=== PATIENT | male | born 1960 | race Caucasian/White ===

== ENCOUNTER → 2020-03-06 14:21 | Outpatient (BNVA) | payer BC, SELFPAY | PROVIDERS: Family Provider Internal Medicine; Visit Provider Emergency Medicine | DX: Z20.828 Contact with and (suspected) exposure to other viral communicable diseases (principal) | CPT/HCPCS: 87635 ==

== ENCOUNTER 2022-04-12 10:17 | Observation (INO) | payer MEDICAID, SELFPAY ==
[2022-04-12] VITALS (29 sets, daily range): BP systolic 132–164; BP diastolic 64–82; PULSE 59–69; RESP 18; TEMP 36.6; O2SAT 91–100; BMI 23.6
--- NOTE | 2022-04-12 10:34 | CT_ITS ---
WS: [id number] CT HEAD TECHNIQUE: Noncontrast CT of the head obtained from the skullbase to the vertex. CLINICAL INFORMATION: SYMPTOMS OF ACUTE STROKE COMPARISON: None. DLP: [address] scans at [facility] use at least one of these dose optimization techniques: automated e xposure control; mA and/or kV adjustment per patient size (includes targeted exams where dose is matc hed to clinical indication); or iterative reconstruction. FINDINGS: No evidence of intracranial hemorrhage or mass effect. Ventricular system and basal cisterns are cochran nt. Mild small vessel changes with mild parenchymal volume loss. Chronic lacunar infarct LEFT johnson radiata. Vascular calcification. No extra-axial fluid collections. No evidence of mass or mass effect . Partial opacification LEFT mastoid air cells. Mucosal thickening in the LEFT middle ear and tympanic membrane. Paranasal sinuses are well aerated. Normal posterior nasopharynx. CT/CT head thrombolytic 57703 IMPRESSION: 1. No evidence of intracranial hemorrhage or mass effect. 2. Mild small vessel changes with mild parenchymal volume loss. 3. Small chronic lacunar infarct LEFT johnson radiata. 4. No acute intracranial findings. Notified Garrett Day DO at 04/12/2022 10:39 AM.
--- NOTE | 2022-04-12 10:39 | CT_ITS ---
WS: [id number] CTA HEAD AND NECK TECHNIQUE: Contrast enhanced CTA of the head and neck with coronal and sagittal reformatted images an d maximum intensity projection (MIP) images. NASCET criteria utilized. CLINICAL INFORMATION: sudden onset N/V, dizziness COMPARISON: None. DLP: 509.[address] scans at [facility] use at least one of these dose optimization techniques: automated e xposure control; mA and/or kV adjustment per patient size (includes targeted exams where dose is matc hed to clinical indication); or iterative reconstruction. FINDINGS: RIGHT: RIGHT common carotid artery is patent. Moderate atheromatous plaque RIGHT carotid bulb extends into the ICA. Less than 50% ICA stenosis. ICA is patent to the skull base. LEFT: LEFT common carotid artery is patent. 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 This remains occluded to the skull base. INTRACRANIAL CTA: RIGHT ICA is patent to the skull base. LEFT ICA is occluded at the skull base. Mild cavernous carotid calcification. Hypoplastic LEFT A1 segment. LEFT MCA territory is supplied via cross-filling anterio r communicating artery. Slightly reduced but relatively normal vascularity to the LEFT MCA territory. Normal vascularity to the RIGHT MCA territory. Normal anterior cerebral arteries. No proximal flow l imiting stenosis. Congenital small basilar artery. Normal vascularity to the ACCOUNT GROUP SUPERVISOR territory bilaterally. Persistent RIGH T ACCOUNT GROUP SUPERVISOR. Patent LEFT posterior communicating artery. RIGHT vertebral artery is patent and partially ends in PICA. LEFT vertebral artery is occluded at the origin which is likely acute either due to atherosclerosis or dissection. Small amount of flow in th e midportion. Vertebral artery reconstitutes distally and is patent to the basilar junction. Pleural thickening with calcification in the LEFT upper lung apex. Fibrosis in the lung apices. Shari l posterior nasopharynx. Normal parapharyngeal fat. Aortic calcification with moderate atheromatous d isease. Straightening with reversal normal cervical lordosis. Moderate spondylitic changes. CT/CT angio headneck* [id number] IMPRESSION: 1. LEFT ICA is occluded just distal to the origin and remains occluded to the skull base. This is probably chronic. 2. Moderate calcified atheromatous plaque RIGHT carotid bulb extending into th e ICA with less than 50% stenosis. ICA is patent to the skull base. 3. RIGHT vertebral artery is patent and partially ends in PICA. Small contribu tion to the basilar artery. 4. LEFT vertebral artery is occluded proximally which is probably acute with a small amount of intermittent flow in the midportion. Distal vertebral artery r econstitutes via collateral flow and remains patent to the basilar junction. 5. Diminutive basilar artery which is patent. Anterior dominant circulation co ntributes to the posterior circulation. 6. LEFT MCA territory supplied via cross-filling via the anterior communicatin g artery. Relatively normal vascularity to the LEFT MCA territory considering L EFT ICA occlusion. Notified Garrett Day DO at 04/12/2022 11:13 AM.
--- NOTE | 2022-04-12 10:40 | W.ED.NEUROSD ---
HPI - Neuro Symptoms/Deficit General: Chief Complaint: Neuro Symptoms/Deficit Stated Complaint: [place] sent for BP issues Time Seen by Provider: 04/12/22 10:39 Source: patient Mode of arrival: ambulatory History of Present Illness: 62-year-old male presents emergency room with complaints of sudden onset of dizziness nausea and vomiting. Dizziness causes balance issues. Difficulty focusing but no loss of visual henriquez. Patient is not on any anticoagulants no recent head trauma no history of CVA or TIA. He does take aspirin daily. He does have a history of hypertension is on lisinopril 10 mg daily. Initial NIH score is 2 he presents 2 hours and 24 minutes after onset of symptoms. Onset (ago): hour(s) Time: 10:17 Last Observed Normal: 08:00 Timing confirmed by: spouse Location: other (Vision/balance nausea vomiting) History of same: No Severity: moderate Relieving factors: none Exacerbating factors: none Context: sudden onset Associated symptoms: Deny chest pain, cough, diaphoresis, fevers/chills, headache(s), anorexia, malaise, nausea, seizures, short of breath, syncope, tingling, vertigo, vomiting or weakness Treatments Prior to Arrival: none Review of Systems Const: Denies: fever(s), chills, fatigue, malaise or diaphoresis Eyes: Reports: change in vision ENMT: Denies: throat pain, ear or mastoid pain, nasal discharge or nasal congestion Card: Denies: chest pain, palpitations, irregular heart rhythm or syncope Resp: Denies: dyspnea, productive cough or non-productive cough GI: Denies: abdominal pain, nausea or vomiting : Denies: flank pain, dysuria, urinary frequency or urinary urgency Skin/Breast: Denies: rash or pruritus Neuro: Reports: difficulty walking; Denies: headache(s) or vertigo PFSH ED PFSH: Medical History HTN (hypertension) Surgical History No pertinent past surgical history Family History Other Stroke Social History Smoking and tobacco status: current every day smoker cigarettes Number of cigarettes per day: 11-20 Alcohol intake: never Substance/Drug Use: never Household members: spouse Housing: House NIH stroke score NIHSS: Level Of Consciousness - 1a: 0 Level Of Consciousness Questions - 1b: Both Correct Level Of Consciousness Commands - 1c: Both Correct Best Gaze - 2: Normal Visual Henriquez - 3: No Visual Loss Facial Palsy - 4: Normal Motor Arm Right - 5: No Drift Motor Arm Left - 5: No Drift Motor Leg Right - 6: Drift Motor Leg Left - 6: No Drift Limb Ataxia - 7: Absent Sensory - 8: Normal Best Language - 9: No Aphasia Dysarthia - 10: Mild/Moderate Dysarthia Extinction And Inattention - 11: 0 Score: Total Score: 2 Physical Exam Const: GENERAL APPEARANCE: cooperative and comfortable ORIENTATION/CONSCIOUSNESS: Yes awake, Yes oriented to person, Yes oriented to place and Yes oriented to time HENMT: COMMON NORMALS: normocephalic, atraumatic and hearing grossly normal bilaterally HEAD & SCALP: normocephalic and atraumatic Eye: COMMON NORMALS: Equal, round and reactive pupils present, EOMs intact bilaterally, conjunctivae normal and no scleral icterus CONJUNCTIVA: Yes conjunctivae normal PUPIL: Yes Equal, round and reactive pupils present Neck/C-Spine: COMMON NORMALS: full ROM, no lymphadenopathy, supple and no JVD Lymph: LYMPHATIC: no lymphadenopathy noted and no lymphedema noted Resp: COMMON NORMALS: normal respiratory effort, No retractions, No use of accessory muscles and clear to auscultation bilaterally AUSCULTATION: clear to auscultation bilaterally Cardio: COMMON NORMALS: no JVD, regular rate, regular rhythm and No murmurs present (Cardio) RATE: regular rate RHYTHM: regular rhythm GI: COMMON NORMALS: Soft to palpation and No hepatosplenomegaly present AUSCULTATION: Yes normoactive bowel sounds PALPATION: Yes Soft to palpation, No Tenderness to palpation present (GI), No Guarding due to palpation present (GI) and Yes No hepatosplenomegaly present Extremity: COMMON NORMALS: normal to inspection, capillary refill normal, no clubbing, cyanosis or edema, no calf tenderness and no pedal edema Neuro: SENSORIUM/ORIENTATION: Yes oriented to person, Yes oriented to place and Yes oriented to time OTHER: NIH score of 2. Patient has difficulty walking we later did ambulate him see notes below. On arrival rapid alternating movements and [id number] were normal. Skin: COMMON NORMALS: no rashes or lesions noted GENERAL SKIN EXAM: no rashes or lesions noted Course Vital Signs: Vital signs: Vital Signs Temperature 98 F 04/12/22 10:24 Pulse Rate 59 L 04/13/22 07:50 Respiratory Rate 18 04/12/22 10:24 Blood Pressure 144/71 04/12/22 18:15 Pulse Oximetry 92 04/13/22 07:50 Oxygen Delivery Me thod 04/13/22 07:50 MDM - Neuro Symptoms/Deficit Medical Decision Making Patient is is within the timeframe for tPA however his NIH score is 2. He does not have any ataxia but still has nausea vomiting and difficulty with balance. Initially was suspicious for hemorrhagic stroke. There is no bleeding on the CT. He did not score high enough to warrant tPA based on his NIH, CTA was done this confirmed her suspicion of a posterior stroke with occlusion of the left vertebral artery that radiology felt was acute. There is also finding of chronic occlusion of the left internal carotid artery.. A consult to [facility] on-call neurology. They recommended that we offer patient tPA based on his symptoms. Neurologist stated that NIH score does not take into account posterior stroke symptoms and given his deficits, timeframe and the finding on the CTA they still would recommend offering tPA. However this is not an area where an embolectomy is an option. Discussed risks and benefits, with the patient and his family they still wished to proceed with tPA, and tPA was started. Medical Records I reviewed the patient's medical records. Lab Data I reviewed the patient's lab results. 04/13/22 02:40 04/13/22 02:[address] 04/12/22 10:34 IMPRESSION: 1. No evidence of intracranial hemorrhage or mass effect. 2. Mild small vessel changes with mild parenchymal volume loss. 3. Small chronic lacunar infarct LEFT johnson radiata. 4. No acute intracranial findings. Notified Garrett Day DO at 04/12/2022 10:39 AM. Head/Neck CTA 04/12/22 10:39 IMPRESSION: 1. LEFT ICA is occluded just distal to the origin and remains occluded to the skull base. This is probably chronic. 2. Moderate calcified atheromatous plaque RIGHT carotid bulb extending into the ICA with less than 50% stenosis. ICA is patent to the skull base. 3. RIGHT vertebral artery is patent and partially ends in PICA. Small contribution to the basilar artery. 4. LEFT vertebral artery is occluded proximally which is probably acute with a small amount of intermittent flow in the midportion. Distal vertebral artery reconstitutes via collateral flow and remains patent to the basilar junction. 5. Diminutive basilar artery which is patent. Anterior dominant circulation contributes to the posterior circulation. 6. LEFT MCA territory supplied via cross-filling via the anterior communicating artery. Relatively normal vascularity to the LEFT MCA territory considering LEFT ICA occlusion. Notified Garrett Day DO at 04/12/2022 11:13 AM. Laboratory Results WBC 9.1 10^3/uL (4.0-10.0) 04/12/22 10:40 RBC 4.82 10^6/uL (4.1-5.3) 04/12/22 10:40 Hgb 14.7 g/dL (11.7-16.6) 04/12/22 10:40 Hct 44.0 % (42.0-52.0) 04/12/22 10:40 MCV 91.3 fl (80-94) 04/12/22 10:40 MCH 30.5 pg (28.0-34.0) 04/12/22 10:40 MCHC 33.4 g/dL (30.0-36.0) 04/12/22 10:40 RDW 13.1 % (12.1-15.1) 04/12/22 10:40 Plt Count 217 10^3/cmm (130-400) 04/12/22 10:40 MPV 12.1 fL (7.4-10.4) H 04/12/22 10:40 Neut % (Auto) 40.3 % 04/12/22 10:40 Lymph % (Auto) 45.1 % 04/12/22 10:40 Milam % (Auto) 10.1 % 04/12/22 10:40 Eos % (Auto) 3.2 % 04/12/22 10:40 Baso % (Auto) 1.2 % 04/12/22 10:40 Neut # (Auto) 3.65 10^3/uL (1.8-7.7) 04/12/22 10:40 Lymph # (Auto) 4.1 10^3/uL (0.8-4.8) 04/12/22 10:40 Milam # (Auto) 0.9 10^3/uL (0.2-0.9) 04/12/22 10:40 Eos # (Auto) 0.3 10^3/uL (0.0-0.8) 04/12/22 10:40 Baso # (Auto) 0.1 10^3/uL (0.0-0.1) 04/12/22 10:40 Nucleated RBC % (auto) 0 % 04/12/22 10:40 Nucleated RBCs # 0.0 /100WBC 04/12/22 10:40 PT 12.60 SECONDS (12.1-14.9) 04/12/22 10:40 INR 0.92 (0.8-1.2) 04/12/22 10:40 APTT 25.4 SECONDS (23.9-36.7) 04/12/22 10:40 Sodium 137 mmol/L (136-145) 04/12/22 10:40 Potassium 4.3 mmol/L (3.5-5.1) 04/12/22 10:40 Chloride 101 mmol/L (98-107) 04/12/22 10:40 Carbon Dioxide 28 mmol/L (22-29) 04/12/22 10:40 Anion Gap 12.3 (5-19) 04/12/22 10:40 BUN 9 mg/dL (8-23) 04/12/22 10:40 Creatinine 0.9 mg/dL (0.7-1.2) 04/12/22 10:40 GFR Calculation 85.0 mL/min (90-130) L 04/12/22 10:40 Glucose 105 mg/dL (65-115) 04/12/22 10:40 POC Glucose 107 mg/dL (70-110) 04/12/22 11:37 Estimat Average Glucose 123 04/12/22 10:40 Hemoglobin A1c 5.9 % (4.0-6.0) 04/12/22 10:40 Calculated Osmolality 283 mOsm/kg (285-295) L 04/12/22 10:40 Calcium 9.5 mg/dL (8.5-10.5) 04/12/22 10:40 Total Bilirubin 0.4 mg/dL (0.15-1.2) 04/12/22 10:40 AST 68 U/L (0-40) H 04/12/22 10:40 ALT 101 U/L (0-41) H 04/12/22 10:40 Alkaline Phosphatase 100 U/L (40-130) 04/12/22 10:40 Total Protein 7.9 g/dL (6.6-8.7) 04/12/22 10:40 Albumin 4.5 g/dL (3.5-5.2) 04/12/22 10:40 Globulin 3.4 g/dL (1.3-4.6) 04/12/22 10:40 Triglycerides 84 mg/dL (0-150) 04/12/22 10:40 Cholesterol 111 mg/dL (0-200) 04/12/22 10:40 LDL Cholesterol, Calc 57 mg/dL (50-129) 04/12/22 10:40 HDL Cholesterol 37 mg/dL (60-100) L 04/12/22 10:40 LDL/HDL Ratio 1.54 RATIO (0.00-3.22) 04/12/22 10:40 Cholesterol/HDL Ratio 3.00 mg/dL (1.0-5.00) 04/12/22 10:40 Vitamin B12 781 pg/mL (232-1245) 04/12/22 10:40 Critical Care Time Critical Care Time: Critical Care Time: Yes Total Critical Care Time: 45 Attestation: The high probability of a clinically significant, sudden or life threatening deterioration of the patient's neurologic system(s) required my full and direct attention, intervention and personal management. The critical care time is as shown. This time is in addition to time spent performing any reported procedures but includes the following: [x] Data and vital sign review and interpretation [x] Patient assessment, examination and intervention [x] Documentation [x] Medication orders and management Discharge Plan Discharge Patient Disposition: Admitted As Inpatient Admit Provider: Tuan Garcia Clinical Impression: Occlusion of left vertebral artery, CVA (cerebral vascular accident), Occlusion of left internal carotid artery Condition: Stable Coding Level of Care Code ED Filtration Plant Operator for Charly Reynolds
[2022-04-12 10:55] LABS: Basophils # 0.1 10^3/uL (0.0-0.1); Basophils % 1.2 %; Eosinophils # 0.3 10^3/uL (0.0-0.8); Eosinophils % 3.2 %; Hemoglobin 14.7 g/dL (11.7-16.6); Lymphocytes # 4.1 10^3/uL (0.8-4.8); Lymphocytes % 45.1 %; Mean Corpuscular HGB Conc 33.4 g/dL (30.0-36.0); Mean Corpuscular Hemoglobin 30.5 pg (28.0-34.0); Mean Corpuscular Volume 91.3 fl (80-94); Mean Platelet Volume 12.1 fL (7.4-10.4); Monocytes # 0.9 10^3/uL (0.2-0.9); Monocytes % 10.1 %; Neutrophils # 3.65 10^3/uL (1.8-7.7); Neutrophils % 40.3 %; Nucleated Red Blood Cells % 0 %; Platelet Count 217 10^3/cmm (130-400); Red Blood Count 4.82 10^6/uL (4.1-5.3); Red Cell Distribution Width 13.1 % (12.1-15.1); White Blood Count 9.1 10^3/uL (4.0-10.0)
[2022-04-12] MEDS: iohexol 350 mg/mL 500 mL Btl (per mL) IV (11:02)
[2022-04-12 11:06] LABS: INR 0.92 (0.8-1.2)
[2022-04-12] MEDS: LORazepam 2 mg/mL INJ 1 mL IVP (11:06)
[2022-04-12 11:07] LABS: Partial Thromboplastin Time 25.4 SECONDS (23.9-36.7)
--- NOTE | 2022-04-12 11:10 | ECG_ITS ---
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 Measurements Intervals [place] Rate: 59 P: 58 TX: 159 QRS: 60 QRSD: 101 T: 59 QT: 450 QTc: 448 Interpretive Statements SINUS BRADYCARDIA POSSIBLE INFERIOR MYOCARDIAL INFARCTION , OF INDETERMINATE AGE [30 ms Q WAVE IN II/aVF] No previous ECG available for comparison Electronically Signed On 04-12-2022 21:09:47 TRANSFORMER MOLDER by Tone Dao M.D. [id number]
[2022-04-12 11:14] LABS: Alanine Aminotransferase 101 U/L (0-41); Albumin Level 4.5 g/dL (3.5-5.2); Alkaline Phosphatase 100 U/L (40-130); Anion Gap 12.3 (5-19); Aspartate Amino Transferase 68 U/L (0-40); Blood Urea Nitrogen 9 mg/dL (8-23); Calcium 9.5 mg/dL (8.5-10.5); Carbon Dioxide 28 mmol/L (22-29); Chloride 101 mmol/L (98-107); Globulin 3.4 g/dL (1.3-4.6); Glucose 105 mg/dL (65-115); Osmolality Calculated 283 mOsm/kg (285-295); Potassium 4.3 mmol/L (3.5-5.1); Sodium 137 mmol/L (136-145); Total Bilirubin 0.4 mg/dL (0.15-1.2); Total Protein 7.9 g/dL (6.6-8.7)
[2022-04-12 11:39] LABS: Glucose Point of Care 107 mg/dL (70-110)
--- NOTE | 2022-04-12 11:57 | PC.NURSE ---
Provider discussed the benefits and side effects of TPN with Patient and SO. Patient stated that he wanted TPA administered.
--- NOTE | 2022-04-12 13:46 | P.HP_ITS ---
Providers/Chief Complaint Admitting Physician: Tuan Garcia MD Primary Care Provider: Akshat Townsend MD Chief Complaint: [place] sent for BP issues History of Present Illness Kenton Wright is a 62 year old male who does not have significant past medical event hypertension and depression presented with chief complaint of dizziness and headache. Patient symptoms started around 8 AM when he was complaining of severe headache. He was describing his headache as achy on back of his head which are associated with ataxia. PCP was called who recommended going to the ER. Patient arrived within 90 minutes of his symptoms, CT scan is showing vertebral artery dissection, [place] stroke team suggested tPA despite vertebral artery dissection. By the time I evaluate the patient patient was stating that his headache is better and he was not in any active distress. By the ER p leo he was given score of 2 for NIH. At the time of my evaluation NIH is 0 at the bedside, patient denying chest pain, nausea, vomiting, diarrhea weakness in his arms or legs or blurry vision. Review of Systems Const: Denies: fever(s) Eyes: Denies: change in vision ENMT: Denies: throat pain Card: Denies: chest pain Resp: Denies: dyspnea GI: Denies: abdominal pain : Denies: flank pain Musc: Denies: neck pain Skin/Breast: Denies: rash Neuro: Denies: headache(s) Psych: Reports: anxiety Endo: Denies: polyuria Tomasz/Lymph: Denies: easy bruising All/Imm: Denies: urticaria Medications/Allergies Home Medications Medication Instructions Recorded Confirmed Last Taken Type albuterol sulfate 90 mcg/actuation 2 puff inhalation .Q4-6H PRN 04/12/2204/12 Unknown History aerosol inhaler (Ventolin HFA) Shortness Of Breath aspirin 81 mg chewable tablet 81 mg PO DAILY 04/12/22 04/12/22 04/12/22 History atorvastatin 10 mg tablet 10 mg PO DAILY 04/12/22 04/12/22 04/11/22 History bupropion HCl 150 mg tablet,12 hr 150 mg PO DAILY 04/12/22 04/12/22 04/12/22 History sustained-release buspirone 5 mg tablet 5 mg PO BID 04/12/22 04/12/22 04/12/22 History levothyroxine 25 mcg tablet 25 mcg PO DAILY 04/12/22 04/12/22 04/12/22 History lisinopril 30 mg tablet 30 mg PO DAILY 04/12/22 04/12/22 04/12/22 History venlafaxine 75 mg capsule,extended 75 mg PO DAILY 04/12/22 04/12/22 04/11/22 History release 24 hr Allergies Allergy/AdvReac Type Severity Reaction Status Date / Time No Known Allergies Allergy Verified 03/06/20 10:15 PFSH Acute PFSH: Medical History HTN (hypertension) Surgical History No pertinent past surgical history Family History Other Stroke Social History (Updated 04/12/22 @ 19:27 by Tuan Garcia MD) Smoking and tobacco status: current every day smoker cigarettes Number of cigarettes per day: 11- Alcohol intake: never Substance/Drug Use: never Household members: spouse Housing: House Vitals/I&O/Wt Last Vital Signs Temp 98 F 04/12/22 10:24 Pulse 69 04/12/22 10:24 Resp 18 04/12/22 10:24 BP 153/72 04/12/22 12:00 Pulse Ox 92 04/12/22 12:00 O2 Del Method 04/12/22 12:00 Weight last 48 hrs Weight 74.843 kg Physical Exam Narrative: NIH 0 S1, S2 Sinus bradycardia Hypertensive Awake and alert Abdomen soft Good strength of upper and lower extremities EOMI, PERRLA No headache or distress Acute chest pain at the bedside Patient is pleasant and cooperative Data 04/12/22 10:40 04/12/22 10:40 A&P Assessment and plan (1) CVA (cerebral vascular accident): Plan Acute CVA status post tPA Left ICA occlusion, left vertebral artery occlusion, stroke screen recommended tPA patient was within the window Patient carry history of hypertension Will give labetalol if blood pressure greater than 180/105 mmHg Start dual antiplatelet therapy 24 hours after the tPA NIH is 0 Hemodynamically stable Requested echo with Doppler, protein C&S Stroke work-up He will need atorvastatin high intensity Full code No sign of dysphagia, he can have regular diet Requested PT OT and ST Attestations Medical Necessity Statement*: Anticipating discharge within 48 hours Time Spent in Patient Care: 40 Coding Level of Care Code Acute Interior Design Project Manager for Eliazarg Fwd Diagnoses CVA (cerebral vascular accident) I63.9
--- NOTE | 2022-04-12 13:59 | USCV_ITS ---
Kenton Wright Age: 62 Gender: M : 1960 Exam Date: 04/12/2022 14:36 Ordering Phys: Tuan Garcia MD Technologist: JOSE DAVID Exam Location: [facility] [place] Indication: STROKE BP: 153 / 72 HR: 54 Rhythm: Sinus Technical Quality: Adequate MEASUREMENTS (Male / Female) Normal Values 2D ECHO LVOT Diameter 2.0 cm LV Ejection Fraction MOD 2C 62.6 % LV Ejection Fraction 2C AL 64.3 % LA Diameter 2.9 cm LA Width 2.9 cm LA Height 3.7 cm RA Width 3.3 cm RA Height 3.9 cm Aorta at Sinotubular Diameter 2.3 cm IVC Diameter 1.2 cm M-MODE Aortic Annulus Diameter 2.9 cm LA Ao Ratio MM 1.0 MV E Point Septal Separation 0.6 cm DOPPLER AV Peak Velocity 133.0 cm/s LVOT Peak Velocity 100.0 cm/s AV Area Cont Eq vti 2.4 cm squared AV Area Cont Eq pk 2.4 cm squared MV Peak Velocity 103.0 cm/s MV Area PHT 2.2 cm squared Mitral E to A Ratio 0.6 MV E' Velocity 35.5 cm/s Mitral E to MV E' Ratio 6.6 Mitral E to LV E' Lateral Ratio 6.1 Mitral E to LV E' Septal Ratio 7.2 TR Peak Velocity 110.4 cm/s TR Peak Gradient 4.9 mmHg TR Mean Velocity 82.2 cm/s TR Mean Gradient 2.9 mmHg TR Velocity Time Integral 32.2 cm TV Peak E Velocity 45.0 cm/s Right Atrial Pressure 3.0 mmHg Pulmonary Artery Systolic Pressu 7.9 mmHg PV Peak Velocity 84.0 cm/s RV Acceleration Time 0.1 s RV Ejection Time 0.3 s RV AcT/ET 0.3 FINDINGS Left Ventricle Normal left ventricular size, systolic function and wall thickness, with no regional wall motion abnormalities. Left ventricular ejection fraction is estimated at 60 %. Normal diastolic function. Right Ventricle Normal right ventricular size and systolic function. RVSP could not be calculated due to incomplete tricuspid regurgitation velocity profile. Right Atrium Normal right atrial size. No evidence of intracardiac shunt by agitated saline (bubble study). Left Atrium Normal left atrial size. Mitral Valve Mildly thickened mitral valve. No mitral valve stenosis. Trace mitral valve regurgitation. Aortic Valve Probably trileaflet aortic valve. No aortic valve stenosis. No aortic valve regurgitation. Tricuspid Valve Structurally normal tricuspid valve. No tricuspid valve stenosis. Trace tricuspid valve regurgitation. Pulmonic Valve Structurally normal pulmonic valve. No pulmonary valve stenosis. No pulmonary valve regurgitation. Pericardium No pericardial effusion. Aorta Normal size aortic root and proximal ascending aorta. IVC Normal IVC dimension with >50% respiratory change of the inferior vena cava. CONCLUSIONS 1. Normal left ventricular size, systolic function and wall thickness, with no regional wall motion abnormalities. Left ventricular ejection fraction is estimated at 60 %. Normal diastolic function. 2. No evidence of intracardiac shunt by agitated saline (bubble study). 3. No prior similar studies to compare. Mitzi Roper MD (Electronically Signed) Final Date: 12 April 2022 17:29 S
--- NOTE | 2022-04-12 14:13 | PC.NURSE ---
Patient arrived to ICU at 1349. TPA was ended before arrival to ICU. Patient is alert and orientated. bedside
[2022-04-12 15:12] LABS: Cholesterol 111 mg/dL (0-200); HDL Cholesterol 37 mg/dL (60-100); LDL Cholesterol Calculated 57 mg/dL (50-129); LDL HDL Ratio 1.54 RATIO (0.00-3.22); Triglycerides 84 mg/dL (0-150)
[2022-04-12 15:28] LABS: Estmated Average Glucose 123; Hemoglobin A1C 5.9 % (4.0-6.0); Vitamin B12 781 pg/mL (232-1245)
[2022-04-12 22:08] LABS: Add Urine Microscopic? NO; Charge for UA Resulting for Rev
[2022-04-12 22:20] LABS: Amphetamines Screen Urine Negative (Negative); Barbiturates Screen Urine Negative (Negative); Benzodiazepines Screen Urine Positive (Negative); Cocaine Screen Urine Negative (Negative); Opiate Screen Urine Positive (Negative); PCP Screen Urine Negative (Negative); THC Screen Urine Positive (Negative)
[2022-04-12 22:25] LABS: Bilirubin Urine Neg (Negative); Blood Urine Neg (Negative); Glucose Urine UA Norm (Normal); Ketones Urine Negative (Negative); Leukocyte Esterase Urine Negative (Negative); Nitrate Urine Negative (Negative); Protein Urine Neg (Negative); Specific Gravity, Urine 1.005 (1.005-1.030); Urine Appearance Clear (CLEAR); Urine Color Yellow (Yellow); Urobilinogen Urine Norm (Negative); pH Urine 7 (5-7)
[2022-04-13 03:03] LABS: Basophils # 0.1 10^3/uL (0.0-0.1); Basophils % 0.8 %; Eosinophils # 0.3 10^3/uL (0.0-0.8); Eosinophils % 2.7 %; Hematocrit 41.7 % (42.0-52.0); Hemoglobin 13.4 g/dL (11.7-16.6); Lymphocytes # 2.6 10^3/uL (0.8-4.8); Lymphocytes % 27.3 %; Mean Corpuscular HGB Conc 32.1 g/dL (30.0-36.0); Mean Corpuscular Hemoglobin 30.2 pg (28.0-34.0); Mean Corpuscular Volume 94.1 fl (80-94); Mean Platelet Volume 12.5 fL (7.4-10.4); Monocytes # 0.8 10^3/uL (0.2-0.9); Monocytes % 8.5 %; Neutrophils # 5.75 10^3/uL (1.8-7.7); Neutrophils % 60.5 %; Nucleated Red Blood Cells % 0 %; Platelet Count 181 10^3/cmm (130-400); Red Blood Count 4.43 10^6/uL (4.1-5.3); Red Cell Distribution Width 13.2 % (12.1-15.1); White Blood Count 9.5 10^3/uL (4.0-10.0)
[2022-04-13 03:28] LABS: Anion Gap 13.5 (5-19); Blood Urea Nitrogen 13 mg/dL (8-23); Carbon Dioxide 27 mmol/L (22-29); Chloride 104 mmol/L (98-107); Glomerular Filtration Rate 97.3 mL/min (90-130); Glucose 90 mg/dL (65-115); Osmolality Calculated 290 mOsm/kg (285-295); Potassium 4.5 mmol/L (3.5-5.1); Sodium 140 mmol/L (136-145)
[2022-04-13 06:00] VITALS: PULSE 67
[2022-04-13 07:50] VITALS: PULSE 59; O2SAT 92
[2022-04-13] MEDS: atorvastatin 40 mg Tablet 20 MG PO (08:31)
[2022-04-13] MEDS: lisinopril 20 mg Tablet 30 MG PO (08:32)
[2022-04-13] MEDS: sennosides-docusate Tablet 1 TAB PO (08:32)
[2022-04-13] MEDS: levothyroxine 25 mcg Tablet PO (08:32)
[2022-04-13 10:00] VITALS: PULSE 59
--- NOTE | 2022-04-13 10:24 | PC.CHAP ---
Pastoral Care Encounter/Spiritual Assessment Type of Contact [] Declined outside salesman visit [] Patient/Family/Request visit [] Outpatient visit [] Follow-up visit [] Physician referral [] Code/Alert x[] Routine visit [] Staff referral [] Actively dying [x]x Patient sleeping [] Family support [] [] Out of room [] Palliative care [] [] Receiving care in room [] Pre-surgical visit [] Trauma [] Long length of stay [] ICU visit [] Other: Relational/Emotional Strength [] Patient feels connected with others/family/visitors/staff [] Distress [] Loneliness/isolation [] Abandonment Spirituality of Patient [] Person of Neha [] Attends Yarsanism of their Neha [] Believes in Prayer [] Reads Bible or Baptism materials [] There are Spiritual issues to be addressed Resourcing Advisor Interventions [] Prayer [] Active listening [] Non-anxious presence [] Spiritual/emotional support [] Crisis/trauma care [] Spiritual counseling [] Bereavement support [] Provided bereavement packet [] Provided Bible/devotional materials [] Provided toy/stuffed animal, coloring book to patient or family member [] Provided Communion [] Anointing/[place] [] Salvation [] Completed spiritual assessment [] Other: Impact on Illness or Injury [] Angry [] Fearful [] Anxious [] Often cries [] Exhaustion [] Unable to work [] Unable to attend protestant [] Unable to walk/stand [] Unable to read [] Unable to drive [] Unable to eat/drink [] Unable to sleep [] Unable to be with family [] Patient intubated [] Other: Summary Time spent with patient
[2022-04-13] MEDS: acetaminophen 500 mg Tablet PO (10:26)
--- NOTE | 2022-04-13 10:34 | P.DS_ITS ---
Discharge Providers Date of Admission: 04/12/22 13:59 Date of Discharge: April 13, 2022 Attending Provider at Admission: Tuan Garcia MD Attending Provider at Discharge: Tuan Garcia MD Primary Care Provider: Akshat Townsend MD Diagnoses at Discharge Discharge Diagnosis (1) CVA (cerebral vascular accident): Status: Acute Reason for Visit Reason for Visit: Kristian sent for BP issues Hospital Course Hospital Course 62-year-old male who carries history of hypertension and active smoking, no other medical history, presented to the hospital within 3 hours of his symptoms, his symptoms started at 8 AM with dizziness and headache, his PCP recommended him to go to the ER where he was given tPA for posterior circulation stroke on recommendation of [facility] stroke team, CT head unremarkable however CTA head and neck showed left ICA occlusion, left vertebral artery dissection, patient symptoms of headache and dizziness improved after tPA. He was monitored in the ICU, he did very well with PT, OT and speech therapy. He is being discharged on aspirin, high-dose statins, he is already on venlafaxine and BuSpar and bupropion for his anxiety and smoking cessation. His blood pressure remained stable. He may continue his lisinopril 30 mg daily. Physical Exam Narrative: NIH 0 EOMI, PERRLA Nonfocal neuro exam Awake and alert Sinus rhythm Normotensive Hemodynamic stable Doing well on room air Able to swallow without any difficulty Discharge Data Studies Completed and Pending Completed Studies During Hospitalization Category Date Time Status CT angio headneck* [id number] Stat Cat Scan 04/12/22 10:[address] head thrombolytic [id number] Stat Cat Scan 04/12/22 10:34 Completed CV. echo w/w bubble cont [id number] Routine Ultrasound 04/12/22 13:59 Completed Pending at discharge Category Date Time Status PROTEIN C, ACTIVITY Routine Lab 04/12/22 10:40 Received PROTEIN S, ACTIVITY Routine Lab 04/12/22 10:40 Received Radiology Impressions Head CT 04/12/22 10:34 IMPRESSION: 1. No evidence of intracranial hemorrhage or mass effect. 2. Mild small vessel changes with mild parenchymal volume loss. 3. Small chronic lacunar infarct LEFT johnson radiata. 4. No acute intracranial findings. Notified Garrett Day DO at 04/12/2022 10:39 AM. Head/Neck CTA 04/12/22 10:39 IMPRESSION: 1. LEFT ICA is occluded just distal to the origin and remains occluded to the skull base. This is probably chronic. 2. Moderate calcified atheromatous plaque RIGHT carotid bulb extending into the ICA with less than 50% stenosis. ICA is patent to the skull base. 3. RIGHT vertebral artery is patent and partially ends in PICA. Small contribution to the basilar artery. 4. LEFT vertebral artery is occluded proximally which is probably acute with a small amount of intermittent flow in the midportion. Distal vertebral artery reconstitutes via collateral flow and remains patent to the basilar junction. 5. Diminutive basilar artery which is patent. Anterior dominant circulation contributes to the posterior circulation. 6. LEFT MCA territory supplied via cross-filling via the anterior communicating artery. Relatively normal vascularity to the LEFT MCA territory considering LEFT ICA occlusion. Notified Garrett Day DO at 04/12/2022 11:13 AM. Laboratory Results WBC 9.5 10^3/uL (4.0-10.0) 04/13/22 02:40 RBC 4.43 10^6/uL (4.1-5.3) 04/13/22 02:40 Hgb 13.4 g/dL (11.7-16.6) 04/13/22 02:40 Hct 41.7 % (42.0-52.0) L 04/13/22 02:40 MCV 94.1 fl (80-94) H 04/13/22 02:40 MCH 30.2 pg (28.0-34.0) 04/13/22 02:40 MCHC 32.1 g/dL (30.0-36.0) 04/13/22 02:40 RDW 13.2 % (12.1-15.1) 04/13/22 02:40 Plt Count 181 10^3/cmm (130-400) 04/13/22 02:40 MPV 12.5 fL (7.4-10.4) H 04/13/22 02:40 Neut % (Auto) 60.5 % 04/13/22 02:40 Lymph % (Auto) 27.3 % 04/13/22 02:40 [place] % (Auto) 8.5 % 04/13/22 02:40 Eos % (Auto) 2.7 % 04/13/22 02:40 Baso % (Auto) 0.8 % 04/13/22 02:40 Neut # (Auto) 5.75 10^3/uL (1.8-7.7) 04/13/22 02:40 Lymph # (Auto) 2.6 10^3/uL (0.8-4.8) 04/13/22 02:40 [place] # (Auto) 0.8 10^3/uL (0.2-0.9) 04/13/22 02:40 Eos # (Auto) 0.3 10^3/uL (0.0-0.8) 04/13/22 02:40 Baso # (Auto) 0.1 10^3/uL (0.0-0.1) 04/13/22 02:40 Nucleated RBC % (auto) 0 % 04/13/22 02:40 Nucleated RBCs # 0.0 /100WBC 04/13/22 02:40 PT 12.60 SECONDS (12.1-14.9) 04/12/22 10:40 INR 0.92 (0.8-1.2) 04/12/22 10:40 APTT 25.4 SECONDS (23.9-36.7) 04/12/22 10:40 Sodium 140 mmol/L (136-145) 04/13/22 02:40 Potassium 4.5 mmol/L (3.5-5.1) 04/13/22 02:40 Chloride 104 mmol/L (98-107) 04/13/22 02:40 Carbon Dioxide 27 mmol/L (22-29) 04/13/22 02:40 Anion Gap 13.5 (5-19) 04/13/22 02:40 BUN 13 mg/dL (8-23) 04/13/22 02:40 Creatinine 0.8 mg/dL (0.7-1.2) 04/13/22 02:40 GFR Calculation 97.3 mL/min (90-130) 04/13/22 02:40 Glucose 90 mg/dL (65-115) 04/13/22 02:40 POC Glucose 107 mg/dL (70-110) 04/12/22 11:37 Estimat Average Glucose 123 04/12/22 10:40 Hemoglobin A1c 5.9 % (4.0-6.0) 04/12/22 10:40 Calculated Osmolality 290 mOsm/kg (285-295) 04/13/22 02:40 Calcium 9.0 mg/dL (8.5-10.5) 04/13/22 02:40 Phosphorus 4.0 mg/dL (2.5-4.5) 04/13/22 02:40 Magnesium 2.0 mg/dL (1.7-2.3) 04/13/22 02:40 Total Bilirubin 0.4 mg/dL (0.15-1.2) 04/12/22 10:40 AST 68 U/L (0-40) H 04/12/22 10:40 ALT 101 U/L (0-41) H 04/12/22 10:40 Alkaline Phosphatase 100 U/L (40-130) 04/12/22 10:40 C-Reactive Protein 3.0 mg/L (0.0-4.9) 04/13/22 02:40 Total Protein 7.9 g/dL (6.6-8.7) 04/12/22 10:40 Albumin 4.5 g/dL (3.5-5.2) 04/12/22 10:40 Globulin 3.4 g/dL (1.3-4.6) 04/12/22 10:40 Triglycerides 84 mg/dL (0-150) 04/12/22 10:40 Cholesterol 111 mg/dL (0-200) 04/12/22 10:40 LDL Cholesterol, Calc 57 mg/dL (50-129) 04/12/22 10:40 HDL Cholesterol 37 mg/dL (60-100) L 04/12/22 10:40 LDL/HDL Ratio 1.54 RATIO (0.00-3.22) 04/12/22 10:40 Cholesterol/HDL Ratio 3.00 mg/dL (1.0-5.00) 04/12/22 10:40 Vitamin B12 781 pg/mL (232-1245) 04/12/22 10:40 Urine Color Yellow (Yellow) 04/12/22 21:50 Urine Appearance Clear (CLEAR) 04/12/22 21:50 Urine pH 7 (5-7) 04/12/22 21:50 Ur Specific [place] 1.005 (1.005-1.030) 04/12/22 21:50 Urine Protein Neg (Negative) 04/12/22 21:50 Urine Glucose (UA) Norm (Normal) 04/12/22 21:50 Urine Ketones Negative (Negative) 04/12/22 21:50 Urine Blood Neg (Negative) 04/12/22 21:50 Urine Nitrate Negative (Negative) 04/12/22 21:50 Urine Bilirubin Neg (Negative) 04/12/22 21:50 Urine Urobilinogen Norm mg/dL (Negative) 04/12/22 21:50 Ur Leukocyte Esterase Negative (Negative) 04/12/22 21:50 Urine Opiates Screen Positive ng/mL (Negative) H 04/12/22 21:50 Ur Barbiturates Screen Negative ng/mL (Negative) 04/12/22 21:50 Ur Phencyclidine Scrn Negative ng/mL (Negative) 04/12/22 21:50 Ur Amphetamines Screen Negative ng/mL (Negative) 04/12/22 21:50 U Benzodiazepines Scrn Positive ng/mL (Negative) H 04/12/22 21:50 Urine Cocaine Screen Negative ng/mL (Negative) 04/12/22 21:50 U Marijuana (THC) Screen Positive ng/mL (Negative) H 04/12/22 21:50 Vitals Last Vital Signs Temp 98 F 04/12/22 10:24 Pulse 59 L 04/13/22 10:00 Resp 18 04/12/22 10:24 BP 144/71 04/12/22 18:15 Pulse Ox 92 04/13/22 07:50 O2 Del Method 04/13/22 07:50 Discharge Plan Discharge Patient Disposition: Home Condition: Stable Prescriptions: Continued buspirone 5 mg tablet 5 mg PO BID bupropion HCl 150 mg tablet sustained-release 12 hr 150 mg PO DAILY venlafaxine 75 mg capsule,extended release 24hr 75 mg PO DAILY levothyroxine 25 mcg tablet 25 mcg PO DAILY lisinopril 30 mg tablet 30 mg PO DAILY Ventolin HFA 90 mcg/actuation HFA aerosol inhaler 2 puff INHALATION .Q4-6H PRN (Reason: Shortness Of Breath) aspirin 81 mg Tablet,Chewable 81 mg PO DAILY Qty: 60 0RF Changed atorvastatin 10 mg tablet 40 mg PO DAILY Qty: 90 0RF Discharge Orders: Discharge Order (Routine); Ordered 04/13/22 Ordered By: Tuan Garcia Referrals: Akshat Townsend MD [Primary Care Provider] - 1-3 days (your appointment is scheduled :(Saturday at time of 4:00 pm ) Discharge Diet: Cardiac Discharge Activity: Increase activity as tolerated Patient Instructions: Heart Healthy Diet, Self Care Measures After a Stroke (DC), Aspiration Precautions (DC), Opioid Safety, Stroke Stoplight Activity Restrictions/Additional Instructions: Please follow-up with your PCP within 1 to 3 days, you can start taking aspirin from 04/14/2022, you can resume rest of your medications for blood pressure and depression Discharge Attestations Time Spent in Discharge Care*: less than 30 min Quality Metrics Clinical Quality Measures [ No reported AMI, CVA or VTE this stay] Coding Level of Care Code Acute Chg FW DC note Diagnoses CVA (cerebral vascular accident) I63.9
[2022-04-13 11:01] VITALS: BP 144/71; RESP 18; TEMP 36.6; O2SAT 92
--- NOTE | 2022-04-13 12:52 | PC.NURSE ---
Patient discharged at 1215 and left floor via W/C to main exit. Patient was given all discharge information and instructions, patient and family all verbalized understanding. All IV's removed. All patient belongings sent with patient.
[2022-04-14 20:55] LABS: PROTEIN S, ACTIVITY 52 % normal (70-150)
[2022-04-18 05:00] LABS: PROTEIN C, ACTIVITY 103 % normal (70-180)
== END 2022-04-13 12:15 | disposition home or self-care (01) ==
LOC: ER 12:47 → ICU 15:36
PROVIDERS: Admitting Provider Internal Medicine; Emergency Provider Family Medicine; PCP Family Medicine; Visit Provider Internal Medicine
DX: I63.9 Cerebral infarction, unspecified (principal); I10 Essential (primary) hypertension; F17.210 Nicotine dependence, cigarettes, uncomplicated
CPT/HCPCS: 36415; 36416; 70450; 70496; 70498; 80048; 80053; 80061; 80306; 81003; 82607; 82962; 83036; 83735; 84100; 85025; 85303; 85306; 85610; 85730; 86140; 92523; 92610; 93005; 96365; 96375; 97110; 97116; 97161; 97165; 99285; C8929; G0378; J2060; J2997; Q9967

== ENCOUNTER → 2022-04-19 10:30 | Outpatient (BNVA) | payer MEDICAID, SELFPAY | PROVIDERS: PCP Family Medicine; Visit Provider Student in an Organized Health Care Education/Training Program | DX: B18.2 Chronic viral hepatitis C (principal) | CPT/HCPCS: 36415; 86705; 86706; 86709; 86803; 87340; 87522 ==

== ENCOUNTER 2022-06-12 07:30 | Outpatient (CLI) | payer MEDICAID, SELFPAY ==
--- NOTE | 2022-06-12 07:45 | US_ITS ---
WS: [id number] RIGHT UPPER QUADRANT ULTRASOUND HISTORY: chronic hepatitis c COMPARISON: None available. Liver: 12.8 cm in length. Normal size liver. No mass. There is very slight coarsened echotexture sugg esting hepatocellular disease. No mass or bile duct dilatation. Portal Vein: Normal hepatopetal flow with monophasic waveform. Gallbladder: Normally distended gallbladder with no stones or wall thickening. CBD: 0.2 cm Pancreas: Poorly visualized due to body habitus and bowel gas. Right kidney: 9.4 cm in length. Normal size and echogenicity. No hydronephrosis or mass. Aorta and IVC: Unremarkable abdominal aorta and IVC. No ascites. US/US liver [id number] IMPRESSION: 1. Negative gallbladder. 2. No bile duct dilatation. 3. Very mild coarse echotexture throughout the liver can be seen with early ch anges of cirrhosis or hepatocellular disease.
== END 2022-06-12 07:31 | disposition home or self-care (01) ==
LOC: RAD 07:30
PROVIDERS: PCP Family Medicine; Visit Provider Student in an Organized Health Care Education/Training Program
DX: B18.2 Chronic viral hepatitis C (principal)
CPT/HCPCS: 76705

== ENCOUNTER 2022-08-06 20:09 | Inpatient (IN) | payer MEDICAID, SELFPAY ==
[2022-08-06 20:22] VITALS: BP 147/89; PULSE 95; RESP 18; TEMP 36.9; O2SAT 98; BMI 23.7
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
[2022-08-06 20:57] LABS: Basophils # 0.1 10^3/uL (0.0-0.1); Basophils % 0.9 %; Eosinophils # 0.2 10^3/uL (0.0-0.8); Eosinophils % 1.7 %; Hematocrit 43.1 % (42.0-52.0); Hemoglobin 14.6 g/dL (11.7-16.6); Lymphocytes # 4.4 10^3/uL (0.8-4.8); Mean Corpuscular HGB Conc 33.9 g/dL (30.0-36.0); Mean Corpuscular Hemoglobin 30.5 pg (28.0-34.0); Mean Corpuscular Volume 90.2 fl (80-94); Mean Platelet Volume 11.3 fL (7.4-10.4); Monocytes % 9.8 %; Neutrophils # 4.18 10^3/uL (1.8-7.7); Neutrophils % 42.5 %; Nucleated Red Blood Cells % 0 %; Platelet Count 233 10^3/cmm (130-400); Red Blood Count 4.78 10^6/uL (4.1-5.3); Red Cell Distribution Width 12.3 % (12.1-15.1); White Blood Count 9.8 10^3/uL (4.0-10.0)
[2022-08-06 21:16] LABS: Amphetamines Screen Urine Negative (Negative); Barbiturates Screen Urine Negative (Negative); Benzodiazepines Screen Urine Negative (Negative); Cocaine Screen Urine Negative (Negative); Opiate Screen Urine Negative (Negative); PCP Screen Urine Negative (Negative); THC Screen Urine Positive (Negative)
[2022-08-06 21:19] LABS: Alanine Aminotransferase 16 U/L (0-41); Albumin Level 4.8 g/dL (3.5-5.2); Alkaline Phosphatase 85 U/L (40-130); Anion Gap 13.4 (5-19); Aspartate Amino Transferase 17 U/L (0-40); Blood Urea Nitrogen 19 mg/dL (8-23); Calcium 9.8 mg/dL (8.5-10.5); Carbon Dioxide 29 mmol/L (22-29); Chloride 91 mmol/L (98-107); Globulin 3.5 g/dL (1.3-4.6); Glomerular Filtration Rate 75.2 mL/min (90-130); Glucose 113 mg/dL (65-115); Osmolality Calculated 273 mOsm/kg (285-295); Potassium 3.4 mmol/L (3.5-5.1); Sodium 130 mmol/L (136-145); Total Bilirubin 0.3 mg/dL (0.15-1.2); Total Protein 8.3 g/dL (6.6-8.7)
[2022-08-06 21:28] LABS: Acetaminophen < 5.0 ug/mL (10-30); Alcohol Level < 10 mg/dL (0-10); Salicylate < 0.3 mg/dL (3-10)
[2022-08-06 23:23] VITALS: BP 135/72; PULSE 72; RESP 17; TEMP 36.9; O2SAT 99
[2022-08-06 23:28] VITALS: BP 144/83; PULSE 78; RESP 18; TEMP 36.8; O2SAT 99
[2022-08-07 06:00] VITALS: BP 128/85; PULSE 92; RESP 16; TEMP 36.6; O2SAT 99
[2022-08-07] MEDS: lisinopril 20 mg Tablet 40 MG PO (08:39)
[2022-08-07] MEDS: buPROPion SR (12 HR) 150 mg Tablet PO ×2 (08:39→21:38)
[2022-08-07] MEDS: levothyroxine 25 mcg Tablet PO (08:39)
[2022-08-07] MEDS: aspirin 81 mg EC Tablet PO (08:40)
[2022-08-07] MEDS: venlafaxine ER (24HR) 75 mg Capsule PO (08:40)
[2022-08-07] MEDS: BuSPIRONE 10 mg Tablet 5 MG PO ×2 (08:40→21:37)
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
[2022-08-07 14:00] VITALS: BP 126/81; PULSE 92; RESP 18; TEMP 36.8; O2SAT 98
[2022-08-07 22:00] VITALS: BP 133/80; PULSE 104; RESP 16; TEMP 36.9; O2SAT 95
[2022-08-08 06:00] VITALS: RESP 17
[2022-08-08] MEDS: lisinopril 20 mg Tablet 40 MG PO (10:20)
[2022-08-08] MEDS: BuSPIRONE 10 mg Tablet 5 MG PO ×2 (10:21→20:31)
[2022-08-08] MEDS: aspirin 81 mg EC Tablet PO (10:21)
[2022-08-08] MEDS: venlafaxine ER (24HR) 75 mg Capsule PO (10:22)
[2022-08-08] MEDS: benztropine 1 mg Tablet PO (10:22)
[2022-08-08] MEDS: buPROPion SR (12 HR) 150 mg Tablet PO ×2 (10:22→20:31)
[2022-08-08] MEDS: levothyroxine 25 mcg Tablet PO (10:22)
[2022-08-08] MEDS: escitalopram 10 mg Tablet 5 MG PO (11:15)
[2022-08-08 14:00] VITALS: BP 131/84; PULSE 107; RESP 18; TEMP 36.7; O2SAT 98
--- NOTE | 2022-08-08 17:32 | W.PM.NPUPNS ---
Subjective NPU Subjective: Patient presented today reporting that he is doing okay. He has had no difficulty with the rules and not being able to leave since he got here. He was agreeable to switch his antidepressant from Effexor XR 75 mg daily given concerns for side effects given his medical comorbidities to Lexapro 5 mg every morning to start. We discussed the risks, benefits and alternatives and he understood and agreed to proceed as is documented in this note. He denied any problems with the initial dosing. Mental Status Exam MSE Comments: This is a well-nourished well-developed tall white male in hospital scrubs with adequate grooming and eye contact. No abnormal movements except for mild psychomotor retardation. Cooperative with exam in mild distress. Speech was normal rate and volume. Mood described as okay, affect congruent. Thought process organized. Thought content: Patient denied suicidal or homicidal ideation, but did report that he will have aggressive episodes that he feels he is not in control, there were no delusions reported or noted, he denied any auditory or visual hallucinations. Attention and concentration are intact and memory appeared reliable but none were formally tested. He is alert and oriented x3. Insight and judgment are limited and impulse control is impaired. Vitals/I&O/Wt Last Vital Signs Temp 98.1 F 08/08/22 14:00 Pulse 107 H 08/08/22 14:00 Resp 18 08/08/22 14:00 BP 131/84 08/08/22 14:00 Pulse Ox 98 08/08/22 14:00 O2 Del Method Room Air 08/07/22 22:00 Weight last 48 hrs Weight 77.111 kg Data NPU 08/06/22 20:43 08/06/22 20:43 A&P Assessment and plan (1) Aggressive behavior: (2) Hepatitis B antibody positive: (3) Chronic hepatitis C virus genotype 1 infection: (4) Intermittent explosive disorder: (5) History of stroke: Plan A 62-year-old white male with no significant history of depression and anxiety except for that reported subsequent to his stroke in March which led to some depression and anxiety and recently having issues with anger and anger control reporting that he is feeling agitated at times and not able to control his response to that agitation. 1.? Continue current medication.? Consider mood stabilizer for behavioral changes/irritability. Start taper Effexor of Effexor XR 75 mg p.o. daily to 37.5 mg p.o. daily and start Lexapro 5 mg p.o. every morning. 2? Continue every 15 minute checks for safety. 3.? Encourage individual, group and milieu therapies. 4.? Work with family for collateral information. 5. Encourage sober living treatment after discharge at the highest level of care to which he is willing to commit. Involuntary Hold Information 96 Hour Hold: 96 Hour Involuntary Admission: Yes 96 Hour Hold Ending Date: 08/06/22 96 Hour Hold Ending Time: 23:15 Attestations NPU Medical Necessity Statement*: Inpatient hospitalization is medically necessary and the clinically appropriate intervention at this time. We will monitor/initiate medications and make changes as indicated. Likely length of stay 2-4 days. Coding Level of Care Code Acute Code for Chg Fwd Diagnoses Aggressive behavior R46.89 Hepatitis B antibody positive R76.8 Chronic hepatitis C virus genotype 1 infection B18.2 Intermittent explosive disorder F63.81 History of stroke Z86.73
[2022-08-08 22:00] VITALS: BP 113/72; PULSE 77; RESP 18; TEMP 36.4; O2SAT 94
[2022-08-09 05:59] VITALS: RESP 16
[2022-08-09] MEDS: aspirin 81 mg EC Tablet PO (08:34)
[2022-08-09] MEDS: lisinopril 20 mg Tablet 40 MG PO (08:34)
[2022-08-09] MEDS: buPROPion SR (12 HR) 150 mg Tablet PO ×2 (08:34→20:47)
[2022-08-09] MEDS: levothyroxine 25 mcg Tablet PO (08:35)
[2022-08-09] MEDS: BuSPIRONE 10 mg Tablet 5 MG PO ×2 (08:35→20:47)
[2022-08-09] MEDS: venlafaxine ER (24HR) 37.5 mg Capsule PO (08:35)
[2022-08-09] MEDS: escitalopram 10 mg Tablet 5 MG PO (08:35)
[2022-08-09 14:00] VITALS: BP 137/98; PULSE 93; RESP 18; TEMP 36.6; O2SAT 96
--- NOTE | 2022-08-09 17:54 | W.PM.NPUPNS ---
Subjective NPU Subjective: Patient presented today reporting that he is feeling decent with the medication changes. He denies any side effects from the change. He reports he feels a little more calm. We discussed the importance of him following up with therapies so that someone is monitoring any concerns for personality challenges or changes which would not be predictable. We discussed the likelihood of increasing the Lexapro to 10 mg prior to discharge and a plan for ultimately discontinuing the Effexor XR likely in the next week. Mental Status Exam MSE Comments: This is a well-nourished well-developed tall white male in hospital scrubs with adequate grooming and eye contact. No abnormal movements except for mild psychomotor retardation. Cooperative with exam in mild distress. Speech was normal rate and volume. Mood described as better, affect congruent. Thought process organized. Thought content: Patient denied suicidal or homicidal ideation, but did report that he will have aggressive episodes that he feels he is not in control, there were no delusions reported or noted, he denied any auditory or visual hallucinations. Attention and concentration are intact and memory appeared reliable but none were formally tested. He is alert and oriented x3. Insight and judgment are limited and impulse control is impaired. Vitals/I&O/Wt Last Vital Signs Temp 97.9 F 08/09/22 20:09 Pulse 71 08/09/22 20:09 Resp 17 08/09/22 20:09 BP 121/67 08/09/22 20:09 Pulse Ox 100 08/09/22 20:09 O2 Del Method Room Air 08/09/22 20:09 Data NPU 08/06/22 20:43 08/06/22 20:43 A&P Assessment and plan (1) Aggressive behavior: (2) Hepatitis B antibody positive: (3) Chronic hepatitis C virus genotype 1 infection: (4) Intermittent explosive disorder: (5) History of stroke: Plan A 62-year-old white male with no significant history of depression and anxiety except for that reported subsequent to his stroke in March which led to some depression and anxiety and recently having issues with anger and anger control reporting that he is feeling agitated at times and not able to control his response to that agitation. 1.? Continue current medication.? Consider mood stabilizer for behavioral changes/irritability. Start taper Effexor of Effexor XR 75 mg p.o. daily to 37.5 mg p.o. daily and started Lexapro 5 mg p.o. every morning. Likely increased to 10 mg p.o. every morning at discharge. 2? Continue every 15 minute checks for safety. 3.? Encourage individual, group and milieu therapies. 4.? Work with family for collateral information. 5. Encourage sober living treatment after discharge at the highest level of care to which he is willing to commit. 6. Tentative plan for discharge in the morning. Involuntary Hold Information 96 Hour Hold: 96 Hour Involuntary Admission: Yes 96 Hour Hold Ending Date: 08/06/22 96 Hour Hold Ending Time: 23:15 Attestations NPU Medical Necessity Statement*: Inpatient hospitalization is medically necessary and the clinically appropriate intervention at this time. We will monitor/initiate medications and make changes as indicated. Likely length of stay 1-3 days. Coding Level of Care Code Acute Code for Chg Fwd Diagnoses Aggressive behavior R46.89 Hepatitis B antibody positive R76.8 Chronic hepatitis C virus genotype 1 infection B18.2 Intermittent explosive disorder F63.81 History of stroke Z86.73
[2022-08-09 20:09] VITALS: BP 121/67; PULSE 71; RESP 17; TEMP 36.6; O2SAT 100
[2022-08-10 06:00] VITALS: RESP 16
[2022-08-10] MEDS: buPROPion SR (12 HR) 150 mg Tablet PO (09:54)
[2022-08-10] MEDS: venlafaxine ER (24HR) 37.5 mg Capsule PO (09:54)
[2022-08-10] MEDS: escitalopram 10 mg Tablet 5 MG PO (09:54)
[2022-08-10] MEDS: levothyroxine 25 mcg Tablet PO (09:54)
[2022-08-10] MEDS: lisinopril 20 mg Tablet 40 MG PO (09:54)
[2022-08-10] MEDS: BuSPIRONE 10 mg Tablet 5 MG PO (09:54)
[2022-08-10] MEDS: aspirin 81 mg EC Tablet PO (09:54)
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
[2022-08-10 10:40] VITALS: BP 121/61; PULSE 71; RESP 16; TEMP 36.6; O2SAT 100
== END 2022-08-10 12:26 | disposition home or self-care (01) | DRG 883 ==
LOC: ER 22:33 → NP 08-07 06:36
PROVIDERS: Emergency Medicine; Admitting Provider Psychiatry & Neurology Psychiatry; Emergency Provider Emergency Medicine; Visit Provider Psychiatry & Neurology Psychiatry
DX: F63.81 Intermittent explosive disorder (principal); I69.315 Cognitive social or emotional deficit following cerebral infarction; R76.8 Other specified abnormal immunological findings in serum; B18.2 Chronic viral hepatitis C; I10 Essential (primary) hypertension; F17.210 Nicotine dependence, cigarettes, uncomplicated; Z79.82 Long term (current) use of aspirin
CPT/HCPCS: 80053; 80306; 80307; 85025; 97150; 97165; 99285

== ENCOUNTER 2022-12-12 07:22 | Outpatient (CLI) | payer MEDICAID, SELFPAY ==
--- NOTE | 2022-12-12 07:27 | CT_ITS ---
WS: [id number] LDCT LUNG CANCER SCREENING HISTORY: HX OF TOBACCO USE TECHNIQUE: Axial imaging performed from the apices to 1 cm below the costophrenic angles. Coronal and sagittal reformats are submitted with axial MIP series. All CT scans at [facility] use at least one of these dose optimization techniques: automated exposure control; mA and/or kV adjustment per patient size (includes targeted exams where dose is matched to clinical indication); or iterativ e reconstruction. DLP: 65.09 mGy.cm DIvol: Mean CTDIvol: 1.00 (mGy) COMPARISON: None available. Diagnostic quality: Satisfactory Lungs: Moderate pulmonary hyperexpansion. Flattening of the diaphragms from centrilobular emphysema. Pleural thickening with increased pleural fat in the anterior LEFT upper thorax. There is linear scar resulting in traction bronchiectasis in the LEFT upper lobe. No history of prior surgery or trauma w as provided. There is also mild pleural thickening and tagging on the LEFT. These findings are usuall y benign. No endobronchial lesions. Some of these changes were identified on the CT angiogram from . Heart: Normal size heart with no pericardial effusion.. Other findings: Mild atherosclerotic plaque scattered throughout the aorta. Normal sized pulmonary ar serena. No adenopathy. No adrenal mass. IMPRESSION: CT/CT lung screening [id number] LUNG-RADS: 2-Benign Appearance or Behavior FOLLOW UP: 12 Month: Continue annual screening with LDCT OTHER FINDINGS (S MODIFIER): None.
== END 2022-12-12 07:23 | disposition home or self-care (01) ==
LOC: RAD 07:24
PROVIDERS: Visit Provider Family Medicine
DX: Z87.891 Personal history of nicotine dependence (principal); Z12.2 Encounter for screening for malignant neoplasm of respiratory organs
CPT/HCPCS: 71271

== ENCOUNTER 2022-12-27 10:45 | Outpatient (CLI) | payer MEDICAID, SELFPAY ==
[2022-12-28 18:04] LABS: HEP C RNA Viral Load Quant <1.18 NOT DETECTED Log IU/mL (NOT DETECTED); HEP C RNA Viral Load Quant <15 NOT DETECTED IU/mL (NOT DETECTED)
== END 2022-12-27 10:46 | disposition home or self-care (01) ==
PROVIDERS: PCP Family Medicine; Visit Provider Student in an Organized Health Care Education/Training Program
DX: B18.2 Chronic viral hepatitis C (principal)
CPT/HCPCS: 36415; 87522

== ENCOUNTER → 2023-03-21 11:25 | Outpatient (BNVA) | payer MEDICARE, MEDICAID, SELFPAY | PROVIDERS: PCP Family Medicine; Visit Provider Psychiatry & Neurology Neurology | DX: G45.1 Carotid artery syndrome (hemispheric) (principal) | CPT/HCPCS: 99212 ==

== ENCOUNTER 2023-04-25 10:31 | Outpatient (CLI) | payer MEDICARE, MEDICAID, SELFPAY ==
--- NOTE | 2023-04-25 11:00 | MR_ITS ---
WS: [id number] MRI ORBITS WITH AND WITHOUT CONTRAST. COMPARISON: CT head 04/12/2022 Multiplanar, multisequence imaging is performed with and without contrast. MultiHance 17 mL. Diffusion imaging is normal. No evidence for an acute infarct. There is mild volume loss and atrophy and mild small vessel ischemic type changes throughout the white matter. Small lacunar infarct LEFT b emily ganglia. No large territory infarct. There are no enhancing masses. Ventricles are normal. Small caliber pituitary gland. There is no displacement of the optic chiasm or infundibulum. The orbi ts and globes are symmetric bilaterally. The optic nerves are normal size and signal attenuation. No evidence for acute neuritis. No atrophy of the optic nerves. Extraocular muscles are normal. Normal g lobes and orbits. No abnormality at the cerebellopontine angles. Sinuses are clear. Small bilateral mastoid air cell effusions. Calvarium and scalp are negative. There is abnormal signal in the LEFT intracranial carotid artery suggesting complete occlusion. This finding was confirmed on a prior CT angiogram of the neck dated 04/12/2022. IMPRESSION: 1. Normal appearance of the optic nerves. No evidence for neuritis or abnormal enhancement. 2. Patient has a known chronically occluded LEFT intracranial carotid artery. These findings are karen entified on this MRI examination. 3. No acute diffusion abnormality. 4. Mild volume loss and remote lacunar infarct in the LEFT basal ganglia. 5. No mass or mass effect upon the optic chiasm.
[2023-04-25] MEDS: gadobenate dimeglumine 20 mL vial IV (11:54)
== END 2023-04-25 10:32 | disposition home or self-care (01) ==
LOC: RAD 10:32
PROVIDERS: PCP Family Medicine; Visit Provider Psychiatry & Neurology Neurology
DX: Z86.73 Personal history of transient ischemic attack (TIA), and cerebral infarction without residual deficits (principal); I65.22 Occlusion and stenosis of left carotid artery; H35.62 Retinal hemorrhage, left eye
CPT/HCPCS: 70543; 70553; A9577

== ENCOUNTER → 2023-11-06 08:40 | Outpatient (BNVA) | payer MEDICARE, MEDICAID, SELFPAY | PROVIDERS: PCP Family Medicine; Referring Provider Family Medicine; Visit Provider Surgery | DX: K92.2 Gastrointestinal hemorrhage, unspecified (principal) | CPT/HCPCS: 99204 ==

== ENCOUNTER 2023-11-19 10:48 | Inpatient (IN) | payer MEDICARE, MEDICAID, SELFPAY ==
[2023-11-19] VITALS (33 sets, daily range): BP systolic 119–164; BP diastolic 50–91; PULSE 44–64; RESP 9–22; TEMP 36.6; O2SAT 88–100
--- NOTE | 2023-11-19 11:02 | CT_ITS ---
WS: [id number] CT HEAD NONCONTRAST HISTORY: Symptoms of acute stroke TECHNIQUE: Contiguous axial imaging performed through the brain in 2.5 mm imaging. Bone and soft tiss ue windows. Sagittal and coronal reformats reviewed. All CT scans at [facility] use at least one of these dose optimization techniques: automated exposure control; mA and/or kV adjustment per pa tient size (includes targeted exams where dose is matched to clinical indication); or iterative recon struction. DLP: 676.28 mg COMPARISON: None available. No acute intracranial hemorrhage, midline shift or mass effect. Mild atrophy and mild small vessel ischemic disease. Small remote remote lacunar infarct in the LEFT johnson radiata. Ventricles: Normal size with no hydrocephalus. No inferior displacement of the cerebellar tonsils. Paranasal sinuses: As visualized are clear. Mastoid air cells: Well pneumatized. Calvarium and scalp: Skull is intact with no soft tissue edema or swelling. CT/CT head thrombolytic [id number] IMPRESSION: 1. No acute intracranial hemorrhage or edema. 2. Mild atrophy and small vessel ischemic disease. 3. Remote LEFT johnson radiata lacunar infarct. Notified Garrett Day DO at 11/19/2023 11:19 AM.
--- NOTE | 2023-11-19 11:03 | ED_ITS ---
HPI - Neuro Symptoms/Deficit 2 General: Chief Complaint: Neuro Symptoms/Deficit Stated Complaint: Speech, right side weakness, vision Time Seen by Provider: 11/19/23 11:01 History of Present Illness: 63-year-old male [facility] with complaint of difficulty with speech right-sided weakness and vision difficulty. Last known well was last night at around 730 when he woke up with reported he was having Sandra difficulties. He is on clopidogrel he is not on any anticoagulants. 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 CVA (cerebral vascular accident) HTN (hypertension) Surgical History No pertinent past surgical history Family History Other Stroke Social History Smoking and tobacco/nicotine status: current every day tobacco/nicotine user cigarettes Alcohol intake: never Substance/Drug Use: never Household members: spouse Housing: House NIH stroke score 2 NIHSS: Level Of Consciousness - 1a: 1 Level Of Consciousness Questions - 1b: One Correct Level Of Consciousness Commands - 1c: Both Correct Best Gaze - 2: Normal Visual Henriquez - 3: No Visual Loss Facial Palsy - 4: N ormal Motor Arm Right - 5: No Drift Motor Arm Left - 5: No Drift Motor Leg Right - 6: No Drift Motor Leg Left - 6: No Drift Limb Ataxia - 7: P resent In Two Limbs Sensory - 8: Mild To Moderate Loss Best Language - 9: No Aphasia Dysarthia - 10: Normal Extinction And Inattention - 11: 0 Score: Total Score: 5 Physical Exam 2 Const: GENERAL APPEARANCE: cooperative ORIENTATION/CONSCIOUSNESS: Yes awake HENMT: COMMON NORMALS: normocephalic, atraumatic and hearing grossly normal bilaterally HEAD & SCALP: normocephalic and atraumatic Resp: COMMON NORMALS: normal respiratory effort, No retractions, No use of accessory muscles and clear to auscultation bilaterally AUSCULTATION: clear to auscultation bilaterally Cardio: COMMON NORMALS: regular rate, regular rhythm and No murmurs present (Cardio) RATE: regular rate RHYTHM: regular rhythm GI: COMMON NORMALS: Soft to palpation and No hepatosplenomegaly present A USCULTATION: Yes normoactive bowel sounds PALPATION: Yes Soft to palpation, No Tenderness to palpation present (GI), No Guarding due to palpation present (GI) and Yes No hepatosplenomegaly present Extremity: COMMON NORMALS: normal to inspection, capillary refill normal, no clubbing, cyanosis or edema, no calf tenderness and no pedal edema Skin: COMMON NORMALS: no rashes or lesions noted GENERAL SKIN EXAM: no rashes or lesions noted Course 2 Vital Signs: Vital signs: Vital Signs Pulse Rate 48 L 11/19/23 16:47 Respiratory Rate 19 H 11/19/23 16:00 Blood Pressure 119/91 11/19/23 13:30 Pulse Oximetry 96 11/19/23 16:47 Oxygen Delivery Me thod Room Air 11/19/23 16:47 MDM - Neuro Symptoms/Deficit Medical Decision Making Dr. Reilly examine patient as well he had a stroke score of 2. While we are completing the workup including chest pain workup patient's symptoms wax and wane particularly in his right hand. He still reports feeling abnormal sensation in his left arm. He still has some more difficult finding at times. The stroke score is less than 6 Dr. Reilly did not feel that he was a candidate for embolectomy. He is still complaining of chest discomfort his EKG showed a sinus bradycardia with no acute changes. There are some Q waves in 2 3 and aVF. However this is unchanged from March 2022. Previous CTA head and neck showed occlusion of the left ICA with collateral circulation troponins trending negative. Will admit for further evaluation. He continues to intermittently have difficulty with word finding his stroke score has never been elevated enough to pursue thrombectomy nothing noted on the CTA. Will admit for further workup for his ongoing symptoms and for his chest pain. Discussed with hospitalist orders written Lab Data 11/19/23 11:02 11/19/23 11:[address] 11/19/23 11:02 IMPRESSION: 1. No acute intracranial hemorrhage or edema. 2. Mild atrophy and small vessel ischemic disease. 3. Remote LEFT johnson radiata lacunar infarct. Notified Garrett Day DO at 11/19/2023 11:19 AM. Chest X-Ray 11/19/23 11:33 IMPRESSION: 1. Hyperexpanded lungs from emphysema. 2. Stable LEFT upper lobe pleural thickening and scarring and nodule. Head/Neck CTA 11/19/23 13:37 IMPRESSION: 1. Patient has a known remote occlusion of the cervical LEFT ICA. 2. LEFT MCA is small caliber. Arterial flow to the LEFT MCA via an intact [place]. 3. Mild atherosclerosis cervical RIGHT ICA of 50% stenosis. 4. Proximal LEFT vertebral artery is occluded with reconstitution distally as on the prior study. No obvious progression since 04/12/2022. Laboratory Results WBC 8.60 10^3/uL (3.29-11.43) 11/19/23 11:02 RBC 3.95 10^6/uL (3.85-5.65) 11/19/23 11:02 Hgb 11.80 g/dL (11.27-16.99) 11/19/23 11:02 Hct 35.3 % (37-53) L 11/19/23 11:02 MCV 89.4 fl (82-101) 11/19/23 11:02 MCH 29.9 pg (27-33) 11/19/23 11:02 MCHC 33.4 g/dL (30-55) 11/19/23 11:02 RDW 12.3 % (12.1-15.1) 11/19/23 11:02 Plt Count 196 10^3/cmm (157-399) 11/19/23 11:02 MPV 11.2 fL (7.4-10.4) H 11/19/23 11:02 Neut % (Auto) 43.8 % 11/19/23 11:02 Lymph % (Auto) 45.0 % 11/19/23 11:02 [place] % (Auto) 8.0 % 11/19/23 11:02 Eos % (Auto) 2.1 % 11/19/23 11:02 Baso % (Auto) 0.9 % 11/19/23 11:02 Neut # (Auto) 3.76 10^3/uL (1.8-7.7) 11/19/23 11:02 Lymph # (Auto) 3.9 10^3/uL (0.8-4.8) 11/19/23 11:02 [place] # (Auto) 0.7 10^3/uL (0.2-0.9) 11/19/23 11:02 Eos # (Auto) 0.2 10^3/uL (0.0-0.8) 11/19/23 11:02 Baso # (Auto) 0.1 10^3/uL (0.0-0.1) 11/19/23 11:02 Nucleated RBC % (auto) 0 % 11/19/23 11:02 Nucleated RBCs # 0.0 /100WBC 11/19/23 11:02 PT 13.80 SECONDS (12.1-14.9) 11/19/23 11:02 INR 1.03 (0.8-1.2) 11/19/23 11:02 APTT 29.6 SECONDS (23.9-36.7) 11/19/23 11:02 Sodium 131 mmol/L (136-145) L 11/19/23 11:02 Potassium 4.2 mmol/L (3.5-5.1) 11/19/23 11:02 Chloride 95 mmol/L (98-107) L 11/19/23 11:02 Carbon Dioxide 26 mmol/L (22-29) 11/19/23 11:02 Anion Gap 14.2 (5-19) 11/19/23 11:02 BUN 13 mg/dL (8-23) 11/19/23 11:02 Creatinine 1.0 mg/dL (0.7-1.2) 11/19/23 11:02 GFR Calculation 75.0 mL/min (90-130) L 11/19/23 11:02 Glucose 100 mg/dL (65-115) 11/19/23 11:02 POC Glucose 108 mg/dL (70-110) 11/19/23 11:02 Calculated Osmolality 272 mOsm/kg (285-295) L 11/19/23 11:02 Calcium 9.3 mg/dL (8.5-10.5) 11/19/23 11:02 Total Bilirubin 0.3 mg/dL (0.15-1.2) 11/19/23 11:02 AST 14 U/L (0-40) 11/19/23 11:02 ALT 8 U/L (0-41) 11/19/23 11:02 Alkaline Phosphatase 64 U/L (40-130) 11/19/23 11:02 Troponin T Baseline 12 ng/L (0-15) 11/19/23 11:02 Troponin T 120 Minute 12.99 ng/L (0-15) 11/19/23 12:54 Delta Troponin T 0.99 ABS# (0-10) 11/19/23 12:54 Total Protein 6.9 g/dL (6.6-8.7) 11/19/23 11:02 Albumin 4.0 g/dL (3.5-5.2) 11/19/23 11:02 Globulin 2.9 g/dL (1.3-4.6) 11/19/23 11:02 Urine Color Yellow (Yellow) 11/19/23 13:03 Urine Appearance Clear (CLEAR) 11/19/23 13:03 Urine pH 8.0 (5-7) A 11/19/23 13:03 Ur Specific [place] 1.013 (1.005-1.030) 11/19/23 13:03 Urine Protein Negative (Negative) 11/19/23 13:03 Urine Glucose (UA) Negative (Normal) 11/19/23 13:03 Urine Ketones Negative (Negative) 11/19/23 13:03 Urine Blood Negative (Negative) 11/19/23 13:03 Urine Nitrate Negative (Negative) 11/19/23 13:03 Urine Bilirubin Negative (Negative) 11/19/23 13:03 Urine Urobilinogen 0.2 mg/dL (Negative) 11/19/23 13:03 Ur Leukocyte Esterase Negative (Negative) 11/19/23 13:03 Amorphous Sediment Not Reportable 11/19/23 13:03 Urine Opiates Screen Negative ng/mL (Negative) 11/19/23 13:03 Ur Barbiturates Screen Negative ng/mL (Negative) 11/19/23 13:03 Ur Phencyclidine Scrn Negative ng/mL (Negative) 11/19/23 13:03 Ur Amphetamines Screen Negative ng/mL (Negative) 11/19/23 13:03 U Benzodiazepines Scrn Negative ng/mL (Negative) 11/19/23 13:03 Urine Cocaine Screen Negative ng/mL (Negative) 11/19/23 13:03 U Marijuana (THC) Screen Positive ng/mL (Negative) H 11/19/23 13:03 All radiology interpretation(s) finalized by discharge Discharge Plan Discharge Condition: Stable Prescriptions: No Action hydrochlorothiazide 25 mg tablet 25 mg PO DAILY Spiriva Respimat 2.5 mcg/actuation mist 2 puff inhalation DAILY levothyroxine 25 mcg tablet 25 mcg PO DAILY buspirone 5 mg tablet 5 mg PO TID 30 Days Qty: 90 1RF montelukast 10 mg tablet 10 mg PO DAILY Ventolin HFA 90 mcg/actuation HFA aerosol inhaler 2 puff INHALATION .Q4-6H PRN (Reason: Shortness Of Breath) lisinopril 40 mg tablet 40 mg PO DAILY escitalopram oxalate 20 mg tablet 20 mg PO DAILY atorvastatin 10 mg tablet 10 mg PO DAILY clopidogrel 75 mg tablet 75 mg PO QAM Aspir-81 81 mg Tablet,Delayed Release (Dr/Ec) 81 mg PO DAILY Tylenol Extra Strength 500 mg Capsule 500 mg PO Q6H PRN (Reason: Pain) Referrals: Akshat Townsend MD [Primary Care Provider] - Coding Level of Care Code ED Obiee Report Developer for Charly Reynolds
[2023-11-19 11:08] LABS: Basophils # 0.1 10^3/uL (0.0-0.1); Basophils % 0.9 %; Eosinophils # 0.2 10^3/uL (0.0-0.8); Eosinophils % 2.1 %; Hematocrit 35.3 % (37-53); Lymphocytes # 3.9 10^3/uL (0.8-4.8); Mean Corpuscular HGB Conc 33.4 g/dL (30-55); Mean Corpuscular Hemoglobin 29.9 pg (27-33); Mean Corpuscular Volume 89.4 fl (82-101); Mean Platelet Volume 11.2 fL (7.4-10.4); Monocytes # 0.7 10^3/uL (0.2-0.9); Neutrophils # 3.76 10^3/uL (1.8-7.7); Neutrophils % 43.8 %; Nucleated Red Blood Cells % 0 %; Platelet Count 196 10^3/cmm (157-399); Red Blood Count 3.95 10^6/uL (3.85-5.65); Red Cell Distribution Width 12.3 % (12.1-15.1)
--- NOTE | 2023-11-19 11:14 | ECG_ITS ---
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 Measurements Intervals [place] Rate: 52 P: 65 MN: 175 QRS: 63 QRSD: 93 T: 54 QT: 442 QTc: 413 Interpretive Statements SINUS BRADYCARDIA Compared to ECG 04/12/2022 11:10:47 Myocardial infarct finding no longer present Electronically Signed On 11-19-2023 14:57:16 CDT by Yevgeniy Jones M.D. [email or web address] [id number]
[2023-11-19 11:28] LABS: INR 1.03 (0.8-1.2)
[2023-11-19 11:29] LABS: Alanine Aminotransferase 8 U/L (0-41); Alkaline Phosphatase 64 U/L (40-130); Aspartate Amino Transferase 14 U/L (0-40); Blood Urea Nitrogen 13 mg/dL (8-23); Calcium 9.3 mg/dL (8.5-10.5); Carbon Dioxide 26 mmol/L (22-29); Chloride 95 mmol/L (98-107); Creatinine Clr Calc Pharmacy 81.0821; Globulin 2.9 g/dL (1.3-4.6); Glucose 100 mg/dL (65-115); Osmolality Calculated 272 mOsm/kg (285-295); Partial Thromboplastin Time 29.6 SECONDS (23.9-36.7); Sodium 131 mmol/L (136-145); Total Bilirubin 0.3 mg/dL (0.15-1.2); Total Protein 6.9 g/dL (6.6-8.7)
--- NOTE | 2023-11-19 11:29 | P.CONIM_ITS ---
Providers/Reason For Consult 2 Consulting Physician/Specialty*: Oz Reilly MD neurology and epilepsy Reason for Consult*: Code stroke emergency department room #11/acute care Primary Care Provider: Akshat Townsend MD History of Present Illness History of Present Illness Kenton Wright is a 63 year old male with a history of right hemispheric transient ischemic attack, stroke, intermittent explosive disorder, GI bleeding, hepatitis B antibody positive, hepatitis C virus genotype 1 infection. According to the patient's who was present in the emergency department room #11, around 7:30 PM on 11/18/2023 the patient experienced acute onset of inability to speak associated with dizziness and some right-sided weakness. Patient refused to go to the emergency room for acute care. On 11/19/2023 the patient stated the patient woke up this morning with complaints of neck pain, left- sided chest pain and bilateral shoulder pain left arm greater than right. As a result the patient was brought to the emergency department by the . Code stroke was initiated on 11/19/2023 at 11 AM. NIH score =3 (decreased pinprick in the face =1, word finding difficulty =1, left sided neglect in the left lower extremity=1). Serum glucose [address] 11/19/2023 remote LEFT johnson radiata lacunar infarct. Drug allergies: None Current medications: Lipitor 40 mg p.o. daily Plavix 75 mg p.o. daily Lexapro 10 mg p.o. daily Wellbutrin 150 mg p.o. twice daily BuSpar 5 mg p.o. 3 times daily Hydrochlorothiazide 25 mg p.o. daily Lisinopril 40 mg p.o. daily Sofosbuvir 400 mg/velpatasir 100 mg tablets 1 p.o. daily Tiotropium bromide 2.5 mg 2 puffs daily Past medical history: Hepatitis C virus genotype 1 infection GI bleed Remote left subcortical infarction TIA Hepatitis B antibody positive Intermittent explosive disorder Aggressive behavior Habits: The patient smokes 1 pack/day. He is aware of the potential health risks associated with smoking voiced understanding. Patient denied other drug use. Family history: Remarkable for 2 older brothers who experienced strokes. 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 Review of Systems 2 General: Reports: 10 or more systems reviewed and unremarkable except in HPI and below Medications/Allergies Home Medications Medication Instructions Recorded Confirmed Last Taken Type levothyroxine 25 mcg tablet 25 mcg PO DAILY 04/12/22 11/19/23 11/19/23 History buspirone 5 mg tablet 5 mg PO TID 30 days #90 tabs 08/10/22 11/19/23 11/19/23 Rx hydrochlorothiazide 25 mg tablet 25 mg PO DAILY 02/14/23 11/19/23 11/19/23 History tiotropium bromide 2.5 2 puff inhalation DAILY 03/21/23 11/19/23 11/19/23 History mcg/actuation mist for inhalation (Spiriva Respimat) acetaminophen 500 mg capsule 500 mg PO Q6H PRN Pain 11/19/23 11/19/23 Unknown History albuterol sulfate 90 mcg/actuation 2 puff inhalation .Q4-6H PRN 11/19/23 11/19/23 Unknown History aerosol inhaler (Ventolin HFA) Shortness Of Breath aspirin 81 mg tablet,delayed 81 mg PO DAILY 11/19/23 11/19/23 Unknown History release atorvastatin 10 mg tablet 10 mg PO DAILY 11/19/23 11/19/23 11/19/23 History clopidogrel 75 mg tablet 75 mg PO QAM 11/19/23 11/19/23 Unknown History escitalopram oxalate 20 mg tablet 20 mg PO DAILY 11/19/23 11/19/23 11/19/23 History lisinopril 40 mg tablet 40 mg PO DAILY 11/19/23 11/19/23 11/19/23 History montelukast 10 mg tablet 10 mg PO DAILY 11/19/23 11/19/23 11/19/23 History Allergies Allergy/AdvReac Type Severity Reaction Status Date / Time No Known Allergies Allergy Verified 11/06/23 08:47 PFSH Acute 2 PFSH: Medical History 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 CVA (cerebral vascular accident) HTN (hypertension) Surgical History No pertinent past surgical history Family History Other Stroke Social History Smoking and tobacco/nicotine status: current every day tobacco/nicotine user cigarettes Alcohol intake: never Substance/Drug Use: never Household members: spouse Housing: House Vitals/I&O/Wt Last Vital Signs Pulse 52 L 11/19/23 11:24 Resp 22 H 11/19/23 11:24 BP 151/60 11/19/23 11:24 Pulse Ox 100 11/19/23 11:24 O2 Del Method Room Air 11/19/23 11:24 Weight last 48 hrs Weight 180 lb Physical Exam 2 Narrative: NIH score =3 (decreased pinprick in the face =1, word finding difficulty =1, left sided neglect in the left lower extremity=1). Serum glucose [address] 11/19/2023 remote LEFT johnson radiata lacunar infarct. The patient is currently alert and oriented x 3. Speech is fluent but patient displayed occasional word finding difficulty. Head normocephalic. Neck revealed tenderness to palpation in the upper cervical region there was no obvious spasms. Cranial nerves II through XII reveal decreased pinprick in the right face and a V2 through V3 distribution. Pupils 4 mm round reactive to light and accommodation. Extraocular movements intact. There were no nystagmus. Motor testing 5/5 bilaterally. There was no drift. There was no ataxia. There was extinction on double sensory stimulation in the left leg. Deep tendon reflex revealed plantar responses flexor bilaterally. There was no clonus. Throat clear. Lungs clear. Heart regular rhythm and rate. Extremities were negative for clubbing cyanosis or edema. Data 11/19/23 11:02 11/19/23 11:02 A&P Assessment and plan (1) Cerebral infarction, left hemisphere: Impression: 1. Left subcortical versus cortical infarction manifested as loss of speech and right-sided weakness and dizziness, which began on 11/18/2023 at 7:30 PM. Patient did not present to the [facility] emergency room until 11/19/2023. NIH score =3. Therefore patient was not a candidate for intravenous thrombolytics and no intravenous thrombolytics were administered. 2. History of remote Remote LEFT johnson radiata lacunar infarct. Plan: 1. Patient educated on the potential health risk associated with smoking and patient voiced understanding and is aware of the potential health risk associated with smoking. 2. Recommend obtaining noncontrast head MRI to assess for left cerebral versus left subcortical infarction 3. Recommend CT angiogram of head and neck to assess for carotid or vertebral artery stenosis 4. Recommend cardiac evaluation for complaints of left-sided chest pain associated with bilateral shoulder pain and neck pain 5. Consider MRI of the cervical spine without contrast to assess for disc herniation if the above workup is unrevealing to explain the patient's neck pain 6. Recommend GI evaluation to assess for GI issues since patient has history of GI bleed and to determine if it is safe for patient to be started on stronger antiplatelet medications if needed 7. Give patient and patient's stroke pamphlet 8. Neurochecks and vitals signs per NIH stroke protocol 9. Recommend obtaining occupational therapy, physical therapy and speech therapy consults Consult Attestations 2 Medical Necessity Statement: The patient was evaluated by neurology for code stroke emergency department room #11/acute care Coding Level of Care Code 22371 Diagnoses Cerebral infarction, left hemisphere I63.9
[2023-11-19 11:31] LABS: Anion Gap 14.2 (5-19); Potassium 4.2 mmol/L (3.5-5.1)
--- NOTE | 2023-11-19 11:33 | XR_ITS ---
WS: [id number] PORTABLE CHEST HISTORY: chest pain COMPARISON: Lung CT 12/12/2022 Pulmonary hyperexpansion. Nodule and pleural scarring and tethering in the LEFT upper lobe is reident ified. This was also noted on a prior lung screening CT from 12/12/2022. No new mass or nodule. No ple ural effusion or pneumothorax. Cardiac size: Normal. Mediastinum/Aorta: Mild atherosclerosis aorta. No osseous abnormality seen. XR/XR chest 1V portable [id number] IMPRESSION: 1. Hyperexpanded lungs from emphysema. 2. Stable LEFT upper lobe pleural thickening and scarring and nodule.
[2023-11-19 11:51] LABS: Troponin(5th) Baseline 12 ng/L (0-15)
[2023-11-19 12:57] LABS: Glucose Point of Care 108 mg/dL (70-110)
[2023-11-19 13:09] LABS: Charge for UA Resulting for Rev
[2023-11-19 13:16] LABS: Bilirubin Urine Negative (Negative); Blood Urine Negative (Negative); Glucose Urine UA Negative (Normal); Ketones Urine Negative (Negative); Leukocyte Esterase Urine Negative (Negative); Nitrate Urine Negative (Negative); Protein Urine Negative (Negative); Specific Gravity, Urine 1.013 (1.005-1.030); Urine Appearance Clear (CLEAR); Urine Color Yellow (Yellow); Urobilinogen Urine 0.2 mg/dL (Negative)
[2023-11-19 13:21] LABS: Troponin 5 2HR 12.99 ng/L (0-15); Troponin 5 2HR Delta 0.99 ABS# (0-10)
[2023-11-19 13:22] LABS: Amphetamines Screen Urine Negative (Negative); Barbiturates Screen Urine Negative (Negative); Benzodiazepines Screen Urine Negative (Negative); Cocaine Screen Urine Negative (Negative); Opiate Screen Urine Negative (Negative); PCP Screen Urine Negative (Negative); THC Screen Urine Positive (Negative)
--- NOTE | 2023-11-19 13:24 | ECG_ITS ---
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 Measurements Intervals [place] Rate: 52 P: 67 OR: 157 QRS: 75 QRSD: 97 T: 64 QT: 450 QTc: 420 Interpretive Statements SINUS BRADYCARDIA PROBABLE INFERIOR MYOCARDIAL INFARCTION , PROBABLY OLD [35 ms Q WAVE IN II/aVF] Compared to ECG 11/19/2023 11:14:06 Myocardial infarct finding now present Electronically Signed On 11-19-2023 14:57:30 CDT by Yevgeniy Jones M.D. [id number]
--- NOTE | 2023-11-19 13:37 | CT_ITS ---
WS: [id number] CT ANGIOGRAM CEREBRAL AND CAROTID ARTERIES HISTORY: hx L ICA occlusion TECHNIQUE: CT angiogram is performed of the carotid and cerebral arteries. During arterial injection imaging is obtained from the skull vertex to the aortic arch in 1.25 mm imaging. Coronal and sagittal reformats are submitted. Additional multi planar reformats of the carotid and cerebral arteries are submitted, MIP imaging also reviewed. NASCET criteria utilized. [facility] CT [facility] us e at least one of these dose optimization techniques: automated exposure control; mA and/or kV adjust ment per patient size (includes targeted exams where dose is matched to clinical indication); or iter ative reconstruction. CONTRAST: Omnipaque 350; 100 mL IV. DLP: 550.12 mGy.cm COMPARISON: 04/12/2022 Carotid Angiogram: Right carotid: Common carotid artery: Arises normally from the innominate. Mild intimal thickening and atherosclerot ic plaque. Internal carotid artery: Increasing plaque at the bifurcation. No high-grade stenosis. External carotid artery: Patent. Left carotid: Common carotid artery: Small caliber but patent proximal common carotid artery from the arch. Internal carotid artery: Patient has a known occlusion involving the proximal LEFT ICA with dense nellie cified plaque and intimal thickening. External carotid artery: Patent. Right vertebral artery: Patent. Vertebral artery becomes small caliber distally. Left vertebral artery: Small caliber proximal LEFT vertebral artery. The LEFT vertebral artery is int ermittently visualized proximally and may be completely occluded. Similar findings were identified on the prior examination. Force upper cervical region there is reconstitution of the LEFT vertebral art trace distally. Subclavian arteries: Atherosclerotic plaque. No stenoses. Upper thorax: Chronic emphysematous changes at the lung apices. Pleural thickening with calcification in the LEFT upper lobe. Thyroid gland: Normal. Osseous structures: Cervical spondylosis. CEREBRAL ANGIOGRAM: Intracranial vertebral arteries: Small caliber distal RIGHT vertebral artery. Distal vertebral arteri es are both patent to the basilar artery. Basilar artery: No significant stenosis or occlusion. No aneurysm. Intracranial Internal carotid arteries: RIGHT intracranial ICA is patent. There is calcified plaque a nd intimal thickening with stenosis estimated at just less than 50%. Patient has a known occluded cer vical and intracranial LEFT ICA. Middle cerebral arteries: Small caliber LEFT MCA but it is patent due to an intact arch. RIGHT MCA is patent with only mild atherosclerotic disease. Anterior cerebral arteries and ACOM: Normal. Posterior cerebral arteries and PCOM's: Normal. Dural venous sinuses are normally enhancing. Mastoid air cells: Chronic sclerosis mastoid air cells. Paranasal sinuses: Normal. Calvarium: Normal. CT/CT angio headneck* [id number] IMPRESSION: 1. Patient has a known remote occlusion of the cervical LEFT ICA. 2. LEFT MCA is small caliber. Arterial flow to the LEFT MCA via an intact circ le of [place]. 3. Mild atherosclerosis cervical RIGHT ICA of 50% stenosis. 4. Proximal LEFT vertebral artery is occluded with reconstitution distally as on the prior study. No obvious progression since 04/12/2022.
[2023-11-19] MEDS: morphine 4 mg/mL SDV 1 mL 2 MG IVP (13:39)
[2023-11-19] MEDS: aspirin 81 mg Chew Tablet 324 MG PO (13:40)
[2023-11-19] MEDS: iohexol 350 mg/mL 500 mL Btl (per mL) IV (13:55)
--- NOTE | 2023-11-19 16:23 | USCV_ITS ---
Kenton Wright Age: 63 Gender: M : 1960 Exam Date: 11/19/2023 18:04 Ordering Phys: Weston Ulloa MD Technologist: SANTIAGO [place] [facility] [place]: RIGHT hemiparesis, dysphasia, RIGHT visual disturbances. BP: 138 / 50 HR: 47 Rhythm: Sinus bradycardia Technical Quality: Adequate MEASUREMENTS (Male / Female) Normal Values 2D ECHO LV Diastolic Diameter PLAX 4.4 cm 4.2 - 5.9 / 3.9 - 5.3 cm IVS Diastolic Thickness 1.3 cm 0.6 - 1.0 / 0.6 - 0.9 cm IVS Systolic Thickness 1.6 cm LVPW Diastolic Thickness 1.2 cm 0.6 - 1.0 / 0.6 - 0.9 cm LVPW Systolic Thickness 1.1 cm LVOT Diameter 2.0 cm LV Ejection Fraction 2D Teich 67.3 % LV Ejection Fraction MOD 4C 59.4 % LV Ejection Fraction MOD 2C 58.7 % LV Ejection Fraction 2C AL 58.2 % LA Diameter 3.6 cm Aorta at Sinotubular Diameter 2.9 cm IVC Diameter 2.0 cm M-MODE LA Ao Ratio MM 1.2 AV Cusp Separation MM 1.8 cm DOPPLER AV Peak Velocity 94.0 cm/s LVOT Peak Velocity 88.0 cm/s AV Area Cont Eq vti 2.8 cm squared AV Area Cont Eq pk 2.9 cm squared MV Peak Velocity 118.0 cm/s MV Area PHT 2.4 cm squared Mitral E to A Ratio 1.2 TV Peak E Velocity 49.0 cm/s PV Peak Velocity 83.0 cm/s FINDINGS Left Ventricle Left ventricle is normal in size. LV systolic function is normal with EF of 55-60%. No regional wall motion abnormalities. Right Ventricle Normal in size and function Right Atrium Normal in size Left Atrium Normal in size Mitral Valve Structurally normal mitral valve. Mild mitral regurgitation. Aortic Valve Aortic valve is thickened. No significant stenosis or regurgitation. Tricuspid Valve Mild tricuspid regurgitation Pulmonic Valve Not well visualized Pericardium Normal Aorta Normal in size IVC Appears to be normal CONCLUSIONS LV systolic function is normal with EF of 55-60% Mild mitral regurgitation Mild tricuspid regurgitation. Compared to prior echocardiogram from 2021, no significant changes are seen Yevgeniy Jones MD (Electronically Signed) Final Date: 20 November 2023 11:13 S
--- NOTE | 2023-11-19 16:27 | P.HP_ITS ---
Providers/Chief Complaint 2 Primary Care Provider: Akshat Townsend MD Chief Complaint: Speech, right side weakness, vision History of Present Illness Kenton Wright is a 63 year old male with a past medical history of CVA status post tPA in 2022, current history of smoking, hypertension hyperlipidemia, GI bleed hepatitis C, hypothyroidism, who presents [facility] for word finding difficulty. Patient's last known well normal was 7:30 PM, patient woke up this morning, with reported word finding difficulties,, right-sided weakness, visual deficits. Currently patient alert to person, to place, to time he follows commands has word finding difficulty when asked him why he is here in the hospital, he does not know why except that he did not feel well this morning. Currently denies any blurry vision, denies any focal weakness, no paresthesias, did report chest pain, shoulder pain, neck pain. Patient's NIH stroke scale is 3, last known well normal was 7:30 PM yesterday, is not a candidate for IV thrombolytics, CT head no acute bleed, CTA CT/CT angio headneck* [id number] IMPRESSION: 1. Patient has a known remote occlusion of the cervical LEFT ICA. 2. LEFT MCA is small caliber. Arterial flow to the LEFT MCA via an intact [place]. 3. Mild atherosclerosis cervical RIGHT ICA of 50% stenosis. 4. Proximal LEFT vertebral artery is occluded with reconstitution distally as on the prior study. No obvious progression since 04/12/2022. -Patient was assessed by neurology -Patient was assessed by ER physician, ? Hospitalist team was called for admission -Currently patient is alert to person, to place not to time he has word finding difficulty, no significant facial droop detected, at times has trouble following commands, potential receptive aphasia, no focal weakness that I could detect moves both upper and lower extremities equally bilaterally, denies visual deficits, Review of Systems 2 Const: Reports: fatigue and malaise Card: Reports: chest pain GI: Denies: abdominal pain Medications/Allergies Home Medications Medication Instructions Recorded Confirmed Last Taken Type levothyroxine 25 mcg tablet 25 mcg PO DAILY 04/12/22 11/19/23 11/19/23 History buspirone 5 mg tablet 5 mg PO TID 30 days #90 tabs 0411/19/23 11/19/23 Rx hydrochlorothiazide 25 mg tablet 25 mg PO DAILY 02/14/23 11/19/23 11/19/23 History tiotropium bromide 2.5 2 puff inhalation DAILY 03/21/23 11/19/23 11/19/23 History mcg/actuation mist for inhalation (Spiriva Respimat) acetaminophen 500 mg capsule 500 mg PO Q6H PRN Pain 11/19/23 11/19/23 Unknown History albuterol sulfate 90 mcg/actuation 2 puff inhalation .Q4-6H PRN 11/19/23 11/19/23 Unknown History aerosol inhaler (Ventolin HFA) Shortness Of Breath aspirin 81 mg tablet,delayed 81 mg PO DAILY 11/19/23 11/19/23 Unknown History release atorvastatin 10 mg tablet 10 mg PO DAILY 11/19/23 11/19/23 11/19/23 History clopidogrel 75 mg tablet 75 mg PO QAM 11/19/23 11/19/23 Unknown History escitalopram oxalate 20 mg tablet 20 mg PO DAILY 11/19/23 11/19/23 11/19/23 History lisinopril 40 mg tablet 40 mg PO DAILY 11/19/23 11/19/23 11/19/23 History montelukast 10 mg tablet 10 mg PO DAILY 11/19/23 11/19/23 11/19/23 History Allergies Allergy/AdvReac Type Severity Reaction Status Date / Time No Known Allergies Allergy Verified 11/06/23 08:47 PFSH Acute 2 PFSH: Medical History 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 CVA (cerebral vascular accident) HTN (hypertension) Surgical History No pertinent past surgical history Family History Other Stroke Social History Smoking and tobacco/nicotine status: current every day tobacco/nicotine user cigarettes Alcohol intake: never Substance/Drug Use: never Household members: spouse Housing: House Vitals/I&O/Wt Last Vital Signs Pulse 51 L 11/19/23 16:00 Resp 19 H 11/19/23 16:00 BP 119/91 11/19/23 13:30 Pulse Ox 99 11/19/23 16:00 O2 Del Method Room Air 11/19/23 13:24 Weight last 48 hrs Weight 81.647 kg Physical Exam 2 Const: COMMON NORMALS: no acute distress ORIENTATION/CONSCIOUSNESS: Yes awake and Yes oriented to person; not oriented to place HENMT: COMMON NORMALS: normocephalic HEAD & SCALP: normocephalic Resp: COMMON NORMALS: normal respiratory effort, No retractions, No use of accessory muscles and clear to auscultation bilaterally AUSCULTATION: clear to auscultation bilaterally Cardio: COMMON NORMALS: no JVD, regular rate, regular rhythm, S1 normal heart sound present and S2 normal heart sound present RATE: regular rate RHYTHM: regular rhythm HEART SOUNDS: S1 normal heart sound present and S2 normal heart sound present GI: COMMON NORMALS: Normal to inspection, nondistended, normoactive bowel sounds present, Soft to palpation and non-tender Extremity: COMMON NORMALS: no calf tenderness and no pedal edema Neuro: OTHER: - At times does not follow commands -Has receptive aphasia, Has word finding difficulties Is no significant slurring of his words, I cannot discern any facial droop ? Visual deficits are difficult call to assess given his word finding difficulty, receptive aphasia but he denies any blurriness or change in his vision ? Equal strength bilaterally upper extremities Equal strength bilateral lower extremities ? No drift Data 11/19/23 11:02 11/19/23 11:02 A&P Assessment and plan (1) Chronic hepatitis C virus genotype 1 infection: (2) TIA (transient ischemic attack): (3) Cerebral infarction, left hemisphere: Plan Acute CVA -NIH stroke scale 3, most significant symptom is word finding difficulty, receptive aphasia -Out of tPA window, last known well normal was 7:30 PM 11/18/2023 -CT head -CTA head and neck -Is already on aspirin, Plavix, statin -Current smoker Plan ? Allow for permissive hypertension, treat systolic of greater than 220, diastolic is greater than 110 -Neurochecks -NIH stroke scale -Aspiration precautions -PT OT -Speech therapy eval -IV fluids -Continue aspirin -Continue statin -Continue Plavix -Concern for GI bleed, hemoglobin stable, Protonix, Carafate -Will consider MRI based on clinical progress -Telemetry monitoring -Cardiac echo -Chest pain complaints, serial EKGs consult troponins, telemetry monitoring -Full code -SCDs for DVT prophylaxis, Lovenox relatively contraindicated given recent history of concerns for GI bleed Attestations 2 Medical Necessity Statement*: Patient requires hospitalization, inpatient, greater than 2 midnights, for acute CVA Diagnoses Chronic hepatitis C virus genotype 1 infection B18.2 TIA (transient ischemic attack) G45.9 Cerebral infarction, left hemisphere I63.9
--- NOTE | 2023-11-19 17:05 | ECG_ITS ---
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 Measurements Intervals [place] Rate: 49 P: 66 MO: 186 QRS: 60 QRSD: 104 T: 64 QT: 481 QTc: 436 Interpretive Statements SINUS BRADYCARDIA POSSIBLE LATERAL MYOCARDIAL INFARCTION , OF INDETERMINATE AGE [30 ms Q WAVE IN I/aVL/V5/V6] PROBABLE INFERIOR MYOCARDIAL INFARCTION , OF INDETERMINATE AGE [35 ms Q WAVE IN II/aVF] Compared to ECG 11/19/2023 13:33:44 No significant changes Electronically Signed On 11-19-2023 18:10:51 CDT by Yevgeniy Jones M.D. [id number]
[2023-11-19 17:31] LABS: Troponin 5 6HR 17.45 ng/L (0-15); Troponin 5 6HR Delta 5.45 ng/L (0-12)
[2023-11-19] MEDS: sodium chloride 0.9% 1,000 ML 100 ML IV (19:56)
[2023-11-19 20:27] LABS: Chol HDL Ratio 2.63 mg/dL (1.0-5.00); Cholesterol 92 mg/dL (0-200); HDL Cholesterol 35 mg/dL (60-100); LDL Cholesterol Calculated 39 mg/dL (50-129); LDL HDL Ratio 1.11 RATIO (0.00-3.22); Thyroid Stimulating Hormone 0.89 uIU/mL (0.27-4.20); Triglycerides 90 mg/dL (0-150)
[2023-11-19] MEDS: BuSPIRONE 10 mg Tablet 5 MG PO (20:40)
[2023-11-19] MEDS: sucralfate 1 gm/10 mL Oral Liq UDC PO (20:40)
[2023-11-19] MEDS: atorvastatin 40 mg Tablet 20 MG PO (20:41)
[2023-11-19] MEDS: pantoprazole 40 mg SDV IVP (20:41)
--- NOTE | 2023-11-19 20:47 | PC.NURSE ---
Spoke with regarding patient admission assessment revealed patient has a history of TB, was treated for TB 40years ago, and history of positive mantoux tests. Had chest xray in ED and no symptoms of active TB. said no need for precautions at this time.
[2023-11-19 21:36] LABS: Estmated Average Glucose 117; Hemoglobin A1C 5.7 % (4.0-6.0)
[2023-11-20] VITALS (11 sets, daily range): BP systolic 112–147; BP diastolic 45–68; PULSE 42–61; RESP 13–16; TEMP 36.3–36.9; O2SAT 92–99
[2023-11-20 04:27] LABS: Basophils # 0.1 10^3/uL (0.0-0.1); Basophils % 1.4 %; Eosinophils # 0.2 10^3/uL (0.0-0.8); Eosinophils % 3.8 %; Hematocrit 34.9 % (37-53); Lymphocytes # 2.8 10^3/uL (0.8-4.8); Lymphocytes % 48.5 %; Mean Corpuscular Hemoglobin 29.7 pg (27-33); Mean Corpuscular Volume 90.2 fl (82-101); Mean Platelet Volume 11.8 fL (7.4-10.4); Monocytes # 0.5 10^3/uL (0.2-0.9); Monocytes % 8.8 %; Neutrophils # 2.17 10^3/uL (1.8-7.7); Neutrophils % 37.3 %; Nucleated Red Blood Cells % 0 %; Platelet Count 182 10^3/cmm (157-399); Red Blood Count 3.87 10^6/uL (3.85-5.65); Red Cell Distribution Width 12.4 % (12.1-15.1); White Blood Count 5.81 10^3/uL (3.29-11.43)
[2023-11-20 04:46] LABS: Anion Gap 13.8 (5-19); Blood Urea Nitrogen 11 mg/dL (8-23); Calcium 8.9 mg/dL (8.5-10.5); Carbon Dioxide 26 mmol/L (22-29); Chloride 99 mmol/L (98-107); Glomerular Filtration Rate 67.2 mL/min (90-130); Glucose 94 mg/dL (65-115); Osmolality Calculated 279 mOsm/kg (285-295); Potassium 3.8 mmol/L (3.5-5.1); Sodium 135 mmol/L (136-145)
[2023-11-20] MEDS: sodium chloride 0.9% 1,000 ML 100 ML IV (05:47)
[2023-11-20] MEDS: clopidogrel 75 mg Tablet PO (05:52)
[2023-11-20] MEDS: sucralfate 1 gm/10 mL Oral Liq UDC PO ×2 (06:01→21:18)
[2023-11-20] MEDS: escitalopram 10 mg Tablet 20 MG PO (10:04)
[2023-11-20] MEDS: acetaminophen 325 mg Tablet 650 MG PO (10:05)
[2023-11-20] MEDS: levothyroxine 25 mcg Tablet PO (10:05)
[2023-11-20] MEDS: pantoprazole 40 mg SDV IVP (10:06)
[2023-11-20] MEDS: BuSPIRONE 10 mg Tablet 5 MG PO ×3 (10:06→21:19)
[2023-11-20] MEDS: aspirin 81 mg EC Tablet PO (10:06)
--- NOTE | 2023-11-20 13:23 | CT_ITS ---
WS: [id number] CT CERVICAL SPINE HISTORY: neck pain TECHNIQUE: Contiguous 2.0 mm axial imaging performed through the entire cervical spine. Sagittal and coronal reformats also performed. All CT scans at [facility] use at least one of these dose o ptimization techniques: automated exposure control; mA and/or kV adjustment per patient size (include s targeted exams where dose is matched to clinical indication); or iterative reconstruction. DLP: 170.57 mGy.cm COMPARISON: None. Reversal the normal cervical lordosis centered at C4. Disc spaces are narrowed throughout but most si gnificant at C4-5, C5-6 and C6-7. Facet joints are narrowed throughout. No fractures. C1 and C2 later al masses are aligned. The odontoid is intact. Mild LEFT curvature. C2-C3: Normal. C3-C4: Mild osteophytic ridging and facet disease. Moderate LEFT and severe RIGHT foraminal stenosis. C4-C5: Marked annular disc bulging encroaching upon the ventral thecal sac. Severe bilateral foramina l stenosis. C5-C6: Marked osteophytic ridging with severe LEFT and moderate RIGHT foraminal stenosis. C6-C7: Moderate bilateral foraminal stenosis due to osteophyte disease. C7-T1: Normal. Mild carotid atherosclerosis. Small cervical chain lymph nodes. CT/CT cervical spin wo con* [id number] IMPRESSION: 1. No acute cervical spine fracture. 2. Reversal of the normal cervical lordosis centered at C4. 3. Multilevel foraminal stenoses due to facet and osteophytic ridging. Most si gnificant stenoses from C3-4 through C6-7 as above.
--- NOTE | 2023-11-20 16:18 | PM.PN ---
Subjective Subjective: Patient was seen this morning, nursing staff at bedside he is alert to person, place, not to time continues to have significant word finding difficulty, at times receptive aphasia, equal strength bilateral upper and lower extremities, normal [id number], [id number], pupils equal round reactive to light, no facial droop no slurring of his words, his biggest complaint this morning is his neck hurting him, Kernig sign negative, Brudzinski sign negative, no pain on palpation of cervical spine, has some paracervical spinal tenderness Vitals/I&O/Wt Last Vital Signs Temp 98.0 F 11/20/23 11:11 Pulse 61 11/20/23 15:04 Resp 14 11/20/23 11:11 BP 147/68 11/20/23 11:11 Pulse Ox 96 11/20/23 11:11 O2 Del Method Room Air 11/20/23 07:32 11/20/23 11/20/23 11/20/23 06:59 14:59 22:59 Intake Total 985 / 985 480 / 480 Output Total 400 / 400 400 / 400 Balance 585 / 585 80 / 80 Weight last 48 hrs Weight 80.558 kg Weight 79.696 kg Weight 81.647 kg Physical Exam Const: COMMON NORMALS: no acute distress and patient oriented x3 Resp: COMMON NORMALS: normal respiratory effort, No retractions, No use of accessory muscles and clear to auscultation bilaterally AUSCULTATION: clear to auscultation bilaterally Cardio: COMMON NORMALS: regular rate, regular rhythm, S1 normal heart sound present and S2 normal heart sound present RATE: regular rate RHYTHM: regular rhythm HEART SOUNDS: S1 normal heart sound present and S2 normal heart sound present GI: COMMON NORMALS: Normal to inspection, nondistended, normoactive bowel sounds present and non-tender Extremity: COMMON NORMALS: no pedal edema Neuro: COMMON NORMALS: patient oriented x3 Data 11/20/23 03:31 11/20/23 03:31 A&P Assessment and plan (1) Chronic hepatitis C virus genotype 1 infection: (2) TIA (transient ischemic attack): (3) Cerebral infarction, left hemisphere: Plan Acute CVA -NIH stroke scale 3, most significant symptom is word finding difficulty, receptive aphasia -Out of tPA window, last known well normal was 7:30 PM 11/18/2023 -CT head CT/CT head thrombolytic [id number] IMPRESSION: 1. No acute intracranial hemorrhage or edema. 2. Mild atrophy and small vessel ischemic disease. 3. Remote LEFT johnson radiata lacunar infarct -CTA head and neck CT/CT angio headneck* [id number] IMPRESSION: 1. Patient has a known remote occlusion of the cervical LEFT ICA. 2. LEFT MCA is small caliber. Arterial flow to the LEFT MCA via an intact [place]. 3. Mild atherosclerosis cervical RIGHT ICA of 50% stenosis. 4. Proximal LEFT vertebral artery is occluded with reconstitution distally as on the prior study. No obvious progression since 04/12/2022. -Is already on aspirin, Plavix, statin -Current smoker Plan ? Allow for permissive hypertension, treat systolic of greater than 220, diastolic is greater than 110 -Neurochecks -NIH stroke scale -Aspiration precautions -PT OT -Speech therapy eval -IV fluids -Continue aspirin -Continue statin -Continue Plavix -Concern for GI bleed, hemoglobin stable, Protonix, Carafate -Will consider MRI based on clinical progress -Telemetry monitoring -Cardiac echo -Chest pain complaints, serial EKGs consult troponins, telemetry monitoring -Full code -SCDs for DVT prophylaxis, Lovenox relatively contraindicated given recent history of concerns for GI bleed Patient requires hospitalization for acute CVA, word-finding difficulties, requiring speech therapy eval, PT OT, permissive hypertension inpatient monitoring Attestations Medical Necessity Statement*: Patient reports hospitalization, inpatient, greater than 2 midnights, for acute CVA Diagnoses Chronic hepatitis C virus genotype 1 infection B18.2 TIA (transient ischemic attack) G45.9 Cerebral infarction, left hemisphere I63.9
[2023-11-20] MEDS: atorvastatin 40 mg Tablet 20 MG PO (21:18)
[2023-11-20] MEDS: sodium chloride 0.9% 1,000 ML 50 ML IV (21:19)
[2023-11-21] VITALS (11 sets, daily range): BP systolic 120–133; BP diastolic 53–66; PULSE 42–57; RESP 12–18; TEMP 36.3–36.6; O2SAT 96–97; BMI 24.6
[2023-11-21] MEDS: clopidogrel 75 mg Tablet PO (06:15)
[2023-11-21] MEDS: sucralfate 1 gm/10 mL Oral Liq UDC PO ×2 (07:09→10:23)
[2023-11-21] MEDS: levothyroxine 25 mcg Tablet PO (08:12)
[2023-11-21] MEDS: BuSPIRONE 10 mg Tablet 5 MG PO (08:12)
[2023-11-21] MEDS: escitalopram 10 mg Tablet 20 MG PO (08:12)
[2023-11-21] MEDS: aspirin 81 mg EC Tablet PO (08:12)
[2023-11-21] MEDS: pantoprazole 40 mg SDV IVP (08:13)
[2023-11-21] MEDS: polyethylene glycol 3350 Pkt 17 gm PO (10:23)
--- NOTE | 2023-11-21 11:46 | P.DS_ITS ---
Discharge Providers Date of Admission: 11/19/23 18:26 Date of Discharge: November 21, 2023 Attending Provider at Admission: Weston Ulloa MD Attending Provider at Discharge: Weston Ulloa MD Primary Care Provider: Akshat Townsend MD Diagnoses at Discharge Discharge Diagnosis (1) Chronic hepatitis C virus genotype 1 infection: Status: Acute (2) TIA (transient ischemic attack): Status: Acute (3) Cerebral infarction, left hemisphere: Status: Acute Reason for Visit Reason for Visit: Speech, right side weakness, vision Hospital Course Hospital Course thanh Wright is a 63 year old male with a past medical history of CVA status post tPA in 2022, current history of smoking, hypertension hyperlipidemia, GI bleed hepatitis C, hypothyroidism, who presents [facility] for word finding difficulty. Patient's last known well normal was 7:30 PM, patient woke up this morning, with reported word finding difficulties,, right-sided weakness, visual deficits. Currently patient alert to person, to place, to time he follows commands has word finding difficulty when asked him why he is here in the hospital, he does not know why except that he did not feel well this morning. Currently denies any blurry vision, denies any focal weakness, no paresthesias, did report chest pain, shoulder pain, neck pain. Patient's NIH stroke scale is 3, last known well normal was 7:30 PM yesterday, is not a candidate for IV thrombolytics, CT head no acute bleed, CTA CT/CT angio headneck* [id number] IMPRESSION: 1. Patient has a known remote occlusion of the cervical LEFT ICA. 2. LEFT MCA is small caliber. Arterial flow to the LEFT MCA via an intact [place]. 3. Mild atherosclerosis cervical RIGHT ICA of 50% stenosis. 4. Proximal LEFT vertebral artery is occluded with reconstitution distally as on the prior study. No obvious progression since 04/12/2022. - CONCLUSIONS LV systolic function is normal with EF of 55-60% Mild mitral regurgitation Mild tricuspid regurgitation. Compared to prior echocardiogram from 2021, no significant changes are seen -Patient was assessed by neurology -Patient was assessed by ER physician, ? Hospitalist team was called for admission -Currently patient is alert to person, to place not to time he has word finding difficulty, no significant facial droop detected, at times has trouble following commands, potential receptive aphasia, no focal weakness that I could detect moves both upper and lower extremities equally bilaterally, denies visual defici ts, -Patient was admitted to [facility] for acute CVA, received inpatient physical therapy, inpatient moderate, IV fluids, permissive hypertension, out of tPA window, aspirin, statin, Plavix, overall patient clinical condition improved, his word finding difficulty has significantly resolved, no significant receptive aphasia no slurring of words no trouble swallowing ambulating without any significant symptomatology no focal weakness. -MRI was ordered, cannot be done on discharge, as patient's alert oriented x 4, following all commands, no focal neurologic deficits, no paresthesias, word finding difficulty has 6 resolved, receptive aphasia has significantly resolved, can follow-up with neurology as outpatient for MRI -Follow-up with neurology as outpatient -For CTA head and neck findings as above, patient follows up with vascular surgery as outpatient, continue to follow-up with vascular surgery -Had extensive discussion with patient about smoking cessation counseling, needs to quit smoking, morbidity and mortality discussed -For neck pain CT/CT cervical spin wo con* [id number] IMPRESSION: 1. No acute cervical spine fracture. 2. Reversal of the normal cervical lordosis centered at C4. 3. Multilevel foraminal stenoses due to facet and osteophytic ridging. Most significant stenoses from C3-4 through C6-7 as above. -No focal paresthesias, no focal weakness -Discussed CT neck findings as above -Kernig sign negative, Babinski sign negative -Follow-up with as outpatient -For GI evaluation, we do not have GI here at [facility] nonetheless as I am discharged, aspirin, statin, Plavix, and he was supposed to have an outpatient scoping for concern for GI bleed. I have discharged on Protonix, Carafate, with a close follow-up with Dr. Da Silva as outpatient. He denies any bloody or black stools, hemodynamic stable, monitor for blood or black stools as outpatient if so go to emergency room Physical Exam Const: COMMON NORMALS: no acute distress and patient oriented x3 Resp: COMMON NORMALS: normal respiratory effort, No retractions, No use of accessory muscles and clear to auscultation bilaterally AUSCULTATION: clear to auscultation bilaterally Cardio: COMMON NORMALS: regular rate, regular rhythm, S1 normal heart sound present and S2 normal heart sound present RATE: regular rate RHYTHM: regular rhythm HEART SOUNDS: S1 normal heart sound present and S2 normal heart sound present GI: COMMON NORMALS: Normal to inspection, nondistended, normoactive bowel sounds present and non-tender Extremity: COMMON NORMALS: no pedal edema Neuro: COMMON NORMALS: patient oriented x3 Psych: COMMON NORMALS: mental status grossly normal Discharge Data Studies Completed and Pending Completed Studies During Hospitalization Category Date Time Status CT cervical spin wo con* [id number] Routine Cat Scan 11/20/23 13:[address] head thrombolytic [id number] Stat Cat Scan 11/19/23 11:02 Completed CTA head neck [CT angio headneck* [id number]] Stat Cat Scan 11/19/23 13:37 Completed XR chest 1V portable [id number] Stat Exams 11/19/23 11:33 Completed CV. echo complete* [id number] Stat Ultrasound 11/19/23 16:23 Completed Pending at discharge Category Date Time Status Occult Blood Stool [Immunochemical Fecal OCB] Routine Lab 11/19/23 19:40 Uncollected Radiology Impressions Head CT 11/19/23 11:02 IMPRESSION: 1. No acute intracranial hemorrhage or edema. 2. Mild atrophy and small vessel ischemic disease. 3. Remote LEFT johnson radiata lacunar infarct. Notified Garrett Day DO at 11/19/2023 11:19 AM. Chest X-Ray 11/19/23 11:33 IMPRESSION: 1. Hyperexpanded lungs from emphysema. 2. Stable LEFT upper lobe pleural thickening and scarring and nodule. Head/Neck CTA 11/19/23 13:37 IMPRESSION: 1. Patient has a known remote occlusion of the cervical LEFT ICA. 2. LEFT MCA is small caliber. Arterial flow to the LEFT MCA via an intact [place]. 3. Mild atherosclerosis cervical RIGHT ICA of 50% stenosis. 4. Proximal LEFT vertebral artery is occluded with reconstitution distally as on the prior study. No obvious progression since 04/12/2022. Cervical Spine CT 11/20/23 13:23 IMPRESSION: 1. No acute cervical spine fracture. 2. Reversal of the normal cervical lordosis centered at C4. 3. Multilevel foraminal stenoses due to facet and osteophytic ridging. Most significant stenoses from C3-4 through C6-7 as above. Laboratory Results WBC 5.81 10^3/uL (3.29-11.43) 11/20/23 03:31 RBC 3.87 10^6/uL (3.85-5.65) 11/20/23 03:31 Hgb 11.50 g/dL (11.27-16.99) 11/20/23 03:31 Hct 34.9 % (37-53) L 11/20/23 03:31 MCV 90.2 fl (82-101) 11/20/23 03:31 MCH 29.7 pg (27-33) 11/20/23 03:31 MCHC 33.0 g/dL (30-55) 11/20/23 03:31 RDW 12.4 % (12.1-15.1) 11/20/23 03:31 Plt Count 182 10^3/cmm (157-399) 11/20/23 03:31 MPV 11.8 fL (7.4-10.4) H 11/20/23 03:31 Neut % (Auto) 37.3 % 11/20/23 03:31 Lymph % (Auto) 48.5 % 11/20/23 03:31 [place] % (Auto) 8.8 % 11/20/23 03:31 Eos % (Auto) 3.8 % 11/20/23 03:31 Baso % (Auto) 1.4 % 11/20/23 03:31 Neut # (Auto) 2.17 10^3/uL (1.8-7.7) 11/20/23 03:31 Lymph # (Auto) 2.8 10^3/uL (0.8-4.8) 11/20/23 03:31 [place] # (Auto) 0.5 10^3/uL (0.2-0.9) 11/20/23 03:31 Eos # (Auto) 0.2 10^3/uL (0.0-0.8) 11/20/23 03:31 Baso # (Auto) 0.1 10^3/uL (0.0-0.1) 11/20/23 03:31 Nucleated RBC % (auto) 0 % 11/20/23 03:31 Nucleated RBCs # 0.0 /100WBC 11/20/23 03:31 PT 13.80 SECONDS (12.1-14.9) 11/19/23 11:02 INR 1.03 (0.8-1.2) 11/19/23 11:02 APTT 29.6 SECONDS (23.9-36.7) 11/19/23 11:02 Sodium 135 mmol/L (136-145) L 11/20/23 03:31 Potassium 3.8 mmol/L (3.5-5.1) 11/20/23 03:31 Chloride 99 mmol/L (98-107) 11/20/23 03:31 Carbon Dioxide 26 mmol/L (22-29) 11/20/23 03:31 Anion Gap 13.8 (5-19) 11/20/23 03:31 BUN 11 mg/dL (8-23) 11/20/23 03:31 Creatinine 1.1 mg/dL (0.7-1.2) 11/20/23 03:31 GFR Calculation 67.2 mL/min (90-130) L 11/20/23 03:31 Glucose 94 mg/dL (65-115) 11/20/23 03:31 POC Glucose 108 mg/dL (70-110) 11/19/23 11:02 Estimat Average Glucose 117 11/19/23 11:02 Hemoglobin A1c 5.7 % (4.0-6.0) 11/19/23 11:02 Calculated Osmolality 279 mOsm/kg (285-295) L 11/20/23 03:31 Calcium 8.9 mg/dL (8.5-10.5) 11/20/23 03:31 Total Bilirubin 0.3 mg/dL (0.15-1.2) 11/19/23 11:02 AST 14 U/L (0-40) 11/19/23 11:02 ALT 8 U/L (0-41) 11/19/23 11:02 Alkaline Phosphatase 64 U/L (40-130) 11/19/23 11:02 Troponin T Baseline 12 ng/L (0-15) 11/19/23 11:02 Troponin T 120 Minute 12.99 ng/L (0-15) 11/19/23 12:54 Delta Troponin T 0.99 ABS# (0-10) 11/19/23 12:54 Troponin T Hi Sens 6Hr 17.45 ng/L (0-15) H 11/19/23 17:04 Troponin T Hi Sens 6Hr Delta 5.45 ng/L (0-12) 11/19/23 17:04 Total Protein 6.9 g/dL (6.6-8.7) 11/19/23 11:02 Albumin 4.0 g/dL (3.5-5.2) 11/19/23 11:02 Globulin 2.9 g/dL (1.3-4.6) 11/19/23 11:02 Triglycerides 90 mg/dL (0-150) 11/19/23 11:02 Cholesterol 92 mg/dL (0-200) 11/19/23 11:02 LDL Cholesterol, Calc 39 mg/dL (50-129) L 11/19/23 11:02 HDL Cholesterol 35 mg/dL (60-100) L 11/19/23 11:02 LDL/HDL Ratio 1.11 RATIO (0.00-3.22) 11/19/23 11:02 Cholesterol/HDL Ratio 2.63 mg/dL (1.0-5.00) 11/19/23 11:02 TSH 0.89 uIU/mL (0.27-4.20) 11/19/23 11:02 Urine Color Yellow (Yellow) 11/19/23 13:03 Urine Appearance Clear (CLEAR) 11/19/23 13:03 Urine pH 8.0 (5-7) A 11/19/23 13:03 Ur Specific [place] 1.013 (1.005-1.030) 11/19/23 13:03 Urine Protein Negative (Negative) 11/19/23 13:03 Urine Glucose (UA) Negative (Normal) 11/19/23 13:03 Urine Ketones Negative (Negative) 11/19/23 13:03 Urine Blood Negative (Negative) 11/19/23 13:03 Urine Nitrate Negative (Negative) 11/19/23 13:03 Urine Bilirubin Negative (Negative) 11/19/23 13:03 Urine Urobilinogen 0.2 mg/dL (Negative) 11/19/23 13:03 Ur Leukocyte Esterase Negative (Negative) 11/19/23 13:03 Amorphous Sediment Not Reportable 11/19/23 13:03 Urine Opiates Screen Negative ng/mL (Negative) 11/19/23 13:03 Ur Barbiturates Screen Negative ng/mL (Negative) 11/19/23 13:03 Ur Phencyclidine Scrn Negative ng/mL (Negative) 11/19/23 13:03 Ur Amphetamines Screen Negative ng/mL (Negative) 11/19/23 13:03 U Benzodiazepines Scrn Negative ng/mL (Negative) 11/19/23 13:03 Urine Cocaine Screen Negative ng/mL (Negative) 11/19/23 13:03 U Marijuana (THC) Screen Positive ng/mL (Negative) H 11/19/23 13:03 Vitals Last Vital Signs Temp 97.8 F 11/21/23 08:29 Pulse 49 L 11/21/23 08:27 Resp 15 11/21/23 08:27 BP 133/66 11/21/23 08:27 Pulse Ox 97 11/21/23 07:42 O2 Del Method Room Air 11/21/23 07:42 Discharge Plan Discharge Patient Disposition: Home Condition: Stable Prescriptions: New atorvastatin 40 mg Tablet 40 mg PO Q24H 30 Days Qty: 30 0RF Protonix 40 mg tablet,delayed release (DR/EC) 40 mg PO BID 30 Days Qty: 60 0RF Carafate 100 mg/mL suspension 1 g PO BID 28 Days Qty: 560 0RF Continued hydrochlorothiazide 25 mg tablet 25 mg PO DAILY Spiriva Respimat 2.5 mcg/actuation mist 2 puff inhalation DAILY levothyroxine 25 mcg tablet 25 mcg PO DAILY buspirone 5 mg tablet 5 mg PO TID 30 Days Qty: 90 1RF montelukast 10 mg tablet 10 mg PO DAILY Ventolin HFA 90 mcg/actuation HFA aerosol inhaler 2 puff INHALATION .Q4-6H PRN (Reason: Shortness Of Breath) escitalopram oxalate 20 mg tablet 20 mg PO DAILY acetaminophen 500 mg Capsule 500 mg PO Q6H PRN (Reason: Pain) aspirin 81 mg Tablet,Delayed Release (Dr/Ec) 81 mg PO DAILY 30 Days Qty: 30 0RF Changed clopidogrel 75 mg tablet 75 mg PO QAM 30 Days Qty: 30 0RF Held lisinopril 40 mg tablet 40 mg PO DAILY Hold Instructions: Resume on 11/25/23. hold until you see primary care Discontinued atorvastatin 10 mg tablet 10 mg PO DAILY Discharge Orders: Discharge Order (Routine); Ordered 11/21/23 Ordered By: Weston Ulloa Other Ambulatory Orders: MCT/Event Monitor 30 Days (Routine) Timeframe: 1 Day Facility: [facility] [place] - Location: Radiology Ordered By: Weston Ulloa Referrals: Sean Crouch MD [Physician] - 2 weeks (please keep your appointment w/ the GI lab on December 02Saturday. They will call you on what time to come in.) Akshat Townsend MD [Primary Care Provider] - 1 week (Please follow up with your pcp on Saturday, November 24 at 1330 pm.) Oz Reilly MD [Physician] - 1 week (You will have a follow up appointment with neurology on November 24 at 8am.) Yevgeniy Jones M.D [Physician] - 01/23/24 1:30 pm (Please follow up with air brush decorator for heart.) Home Mena DO [Physician] - 1 week Discharge Diet: Cardiac Discharge Activity: Resume usual activity Patient Instructions: How to Stop Smoking (DC), Cigarette Smoking and Your Health (GEN), Ischemic Stroke (DC), Bradycardia (DC), Opioid Safety Activity Restrictions/Additional Instructions: -please stop smoking -if you develop stroke symptoms please call 911 -please follow up with primary care -please follow up with neurology -please follow up cardiology -if you develop bloody or black stools please go to emergency room -if you develop lightheadedness or dizzyness please go to emergency room Discharge Attestations Time Spent in Discharge Care*: greater than 30 min Time Spent in Smoking Cessation: more than 10 minutes Smoking cessation counseling, extensive discussion, risks of strokes, morbidity and mortality discussed Quality Metrics Clinical Quality Measures [ Cerebrovascular Accident { Contraindication to Antithrombotic: None; antithrombotic prescribed; Contraindication to Anticoagulation: Overlap treatment not indicated; Contraindication to Statin: None; Statin prescribed;}. No reported AMI, CVA or VTE this stay] Coding Level of Care Code 04449 Total time (in minutes) for Discharge: 45 Diagnoses Chronic hepatitis C virus genotype 1 infection B18.2 TIA (transient ischemic attack) G45.9 Cerebral infarction, left hemisphere I63.9
--- NOTE | 2023-11-21 11:53 | MR_ITS ---
WS: [id number] MRI HEAD WITHOUT CONTRAST TECHNIQUE: Sagittal T1, T2 axial, T2 axial FLAIR, axial and coronal T1 images, axial susceptibility w eighted imaging, axial diffusion weighted images, and coronal T2 images were obtained. CLINICAL INFORMATION: cva COMPARISON: CT 11/19/2023 FINDINGS: No evidence of restricted diffusion to suggest acute ischemia. Ventricular system and basilar cistern s are patent. Mild to moderate small vessel changes. Chronic lacunar infarcts in the LEFT johnson radi flori. Small vessel changes in the bill. Normal basilar artery flow void. Partial opacification mastoid air cells bilaterally. LEFT ICA is occ luded at the skull base unchanged from the recent CTA. No hemosiderin on the susceptibly weighted alex ges. Normal optic chiasm and pituitary infundibulum. Mild symmetric atrophy temporal lobes and hippoc ampal formations. MR/MR head wo con* [id number] IMPRESSION: 1. No evidence of restricted diffusion to suggest acute ischemia. 2. Mild small vessel changes with moderate parenchymal volume loss. 3. Chronic lacunar infarcts in the LEFT johnson radiata unchanged. 4. Loss of the normal ICA flow void at the skull base compatible with ICA occl usion unchanged from the recent CTA. 5. Bilateral mastoid effusions. 6. No other acute findings.
--- NOTE | 2023-11-21 13:04 | PC.NURSE ---
mri screening done, mri dept stated they will call us back if the pt can be on the schedule today if not,can do it as outpt. notified dr reed and he said he prefers to do it today but if cannot be on the schedule, he is okay to do have it scheduled as an outpt with neurology.
--- NOTE | 2023-11-21 14:37 | PC.NURSE ---
to mri department
== END 2023-11-21 15:17 | disposition home or self-care (01) | DRG 65 ==
LOC: ER 12:55 → CSU 18:26
PROVIDERS: Admitting Provider Family Medicine; Emergency Provider Family Medicine; PCP Family Medicine; Visit Provider Family Medicine
DX: I63.9 Cerebral infarction, unspecified (principal); G81.91 Hemiplegia, unspecified affecting right dominant side; R47.01 Aphasia; H53.8 Other visual disturbances; I10 Essential (primary) hypertension; R29.703 NIHSS score 3; B18.2 Chronic viral hepatitis C; E78.5 Hyperlipidemia, unspecified; E03.9 Hypothyroidism, unspecified; F17.210 Nicotine dependence, cigarettes, uncomplicated; Z86.73 Personal history of transient ischemic attack (TIA), and cerebral infarction without residual deficits; Z79.02 Long term (current) use of antithrombotics/antiplatelets; Z79.82 Long term (current) use of aspirin
CPT/HCPCS: 36415; 36416; 70450; 70496; 70498; 70551; 71045; 72125; 80048; 80053; 80061; 80306; 81003; 81015; 82962; 83036; 84443; 84484; 85025; 85610; 85730; 92523; 92610; 93005; 93306; 94664; 96374; 96376; 97116; 97161; 97165; 99291; A9270; J2270; J2470; J7030; Q9967

== ENCOUNTER → 2023-11-25 08:00 | Outpatient (BNVA) | payer MEDICARE, MEDICAID, SELFPAY | PROVIDERS: PCP Family Medicine; Visit Provider Psychiatry & Neurology Neurology | DX: Z86.73 Personal history of transient ischemic attack (TIA), and cerebral infarction without residual deficits (principal); G45.1 Carotid artery syndrome (hemispheric); R00.1 Bradycardia, unspecified; F17.210 Nicotine dependence, cigarettes, uncomplicated | CPT/HCPCS: 99212 ==

== ENCOUNTER 2023-12-03 05:57 | Day surgery (SDC) | payer MEDICARE, MEDICAID, SELFPAY ==
--- NOTE | 2023-12-03 06:08 | P.HPUD_ITS ---
Surgery/Procedure H&P Update DATE OF PROCEDURE: December 03, 2023 DATE H&P PERFORMED: 11/06/23 H&P UPDATE INFORMATION: I have reviewed H&P completed within last 30 days, I have examined patient prior to procedure, No changes to prior documentation and H&P is in [facility] EMR on date indicated PLANNED PROCEDURE: Operation Date: 12/03/23 07:00 Proposed Procedures p EGD 20003, 46578, G0105, K925.2(Not Applicable) - Sean Crouch MD s Colonoscopy(Not Applicable) - Sean Crouch MD
[2023-12-03 06:18] VITALS: BP 132/64; PULSE 55; RESP 18; TEMP 36.1; O2SAT 98; BMI 25.1
[2023-12-03] MEDS: sodium chloride 0.9% 1,000 ML 30 ML IV (06:23)
--- NOTE | 2023-12-03 07:39 | P.ANESASSM_ITS ---
Pre-Anesthetic Assessment Height/Weight: Height 1.78 m Weight 79.379 kg Temp Pulse Resp BP Pulse Ox O2 Del Method 97.0 F L 55 L 18 132/64 98 Room Air 12/03/23 06:18 12/03/23 06:18 12/03/23 06:18 12/03/23 06:18 12/03/23 06:18 12/03/23 06:18 Operation Date: 12/03/23 07:00 Proposed Procedures p EGD 98159, 26633, G0105, K925.2(Not Applicable) - Sean Crouch MD s Colonoscopy(Not Applicable) - Sean Crouch MD Familial anesthetic complications: none Was Beta Darline taken within 24 hours: N/A Was Clonidine taken within 24 hours: N/A Last intake: Intake Last Liquid Date 12/02/23 Last Liquid Time 21:00 Last Solid Date 12/01/23 Last Solid Time 17:00 Social Tobacco and No alcohol Exam alert, oriented x 3, clear to auscultation bilaterally and regular rate & rhythm CV/HEM Arrythmia Hepatic Hx C GI Gi bleed Neuropsych Cerebrovascular Accident (Recent admission for CVA) Held plavix for procedure. Neurology aware From 11/24 neurology note: According to the patient's the patient has been scheduled for 72-hour cardiac event monitoring to assess for cardiac arrhythmias. The patient's stated the Plavix and aspirin were held while the patient was hospitalized secondary to decreased secondary to decreased hematocrit of 34.9 (normal range 37-53) on 11/20/2023. But according to the the Plavix and aspirin were restarted at the time of discharge but patient has been scheduled for colono scopy on 12/03/2023. Patient denied any further TIA symptoms. He reports he has continued to smoke marijuana. Patient was cautioned regarding potential health risks reported to be associated with smoking marijuana and the patient voiced understanding. I recommend the patient continue to monitor for any recurrent TIA episodes and to present to the nearest emergency room if he experienced any further TIA episodes. He was also instructed to monitor his stool and urine for any bleeding and if any bleeding occurs to present to the nearest emergency room for evaluation presents the patient is on Plavix and aspirin.: And from plan: 3. Patient encouraged to keep his appointment with the surgeon for colonoscopy scheduled for 12/03/2023 since patient has reported anemia with decreased hematocrit Discussed with patient and family higher baseline risk for stroke given patient's history and frequent symptoms, Neurology aware plavix held for colonoscopy procedure and encouraged proceeding with procedure on today's date given possible GI bleed. patient and family ok with proceeding after discussion. Anesthetic Plan ASA status: 4 Anesthesia: MAC Risk of > 500 ml blood loss (7ml/kg in children): No Medications/Allergies Home Medications Medication Instructions Recorded Confirmed Last Taken Type levothyroxine 25 mcg tablet 25 mcg PO DAILY 04/12/22 12/03/23 12/02/23 History buspirone 5 mg tablet 5 mg PO TID 30 days #90 tabs 08/10/22 12/03/23 12/02/23 Rx hydrochlorothiazide 25 mg tablet 25 mg PO DAILY 02/14/23 12/03/23 12/02/23 History tiotropium bromide 2.5 2 puff inhalation DAILY 03/21/23 12/03/23 12/02/23 History mcg/actuation mist for inhalation (Spiriva Respimat) acetaminophen 500 mg capsule 500 mg PO Q6H PRN Pain 11/19/23 12/03/23 11/27/23 History albuterol sulfate 90 mcg/actuation 2 puff inhalation .Q4-6H PRN 11/19/23 12/03/23 12/02/23 History aerosol inhaler (Ventolin HFA) Shortness Of Breath escitalopram oxalate 20 mg tablet 20 mg PO DAILY 11/19/23 12/03/23 12/02/23 H istory lisinopril 40 mg tablet 40 mg PO DAILY 11/19/23 12/03/23 12/02/23 History montelukast 10 mg tablet 10 mg PO DAILY 11/19/23 12/03/23 12/02/23 History aspirin 81 mg tablet,delayed 81 mg PO DAILY 30 days #30 tabs 11/21/23 12/03/23 11/27/23 Rx release atorvastatin 40 mg tablet 40 mg PO Q24H 30 days #30 tabs 11/21/23 12/03/23 12/02/23 Rx clopidogrel 75 mg tablet 75 mg PO QAM 30 days #30 tabs 11/21/23 12/03/23 11/27/23 Rx pantoprazole 40 mg tablet,delayed 40 mg PO BID 30 days #60 tabs 11/21/23 12/03/23 12/02/23 Rx release (Protonix) sucralfate 100 mg/mL oral 1 g (10 mL) PO BID 4 weeks #560 mL 11/21/23 12/03/23 12/02/23 Rx suspension (Carafate) Allergies Allergy/AdvReac Type Severity Reaction Status Date / Time No Known Allergies Allergy Verified 11/28/23 08:15 Current Medications Generic Name Dose Route Start Last Admin Trade Name Freq PRN Reason Stop Dose Admin Sodium Chloride 1,000 mls @ 30 mls/hr 12/03/23 06:00 12/03/23 06:23 Sodium Chloride 0.9% IV 30 mls/hr .Q24H NHI Administration PFSH Anesthesia Medical History 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
[2023-12-03 08:12] VITALS: BP 132/60; PULSE 49; RESP 18; TEMP 36.7; O2SAT 96
[2023-12-03 08:27] VITALS: BP 131/65; PULSE 54; RESP 18; O2SAT 99
[2023-12-03 08:42] VITALS: BP 145/71; PULSE 43; RESP 18; O2SAT 98
--- NOTE | 2023-12-03 08:50 | ANE.PACU2 ---
Inpatient post-anesthesia follow up: Airway intact: Yes Vital signs: Temperature 98.1 F Pulse Rate 43 Respiratory Rate 18 Blood Pressure 145/71 Pulse Oximetry 98 Oxygen Delivery Me thod Room Air Oxygen Flow Rate Fraction of Inspir ed Oxygen Hydration adequate: Yes Nausea and vomiting: No Pain level: 1 Mental status: Baseline
== END 2023-12-03 08:50 | disposition home or self-care (01) ==
PROVIDERS: PCP Family Medicine; Visit Provider Surgery
PROC: 0DJ08ZZ Inspection of Upper Intestinal Tract, Via Natural or Artificial Opening Endoscopic (ICD-10-PCS; CPT 43235; principal; 2023-12-03 07:00)
PROC: 0DJD8ZZ Inspection of Lower Intestinal Tract, Via Natural or Artificial Opening Endoscopic (ICD-10-PCS; CPT 45378; 2023-12-03 07:00)
DX: K92.2 Gastrointestinal hemorrhage, unspecified (principal); K44.9 Diaphragmatic hernia without obstruction or gangrene; K57.30 Diverticulosis of large intestine without perforation or abscess without bleeding; K63.5 Polyp of colon; Z86.73 Personal history of transient ischemic attack (TIA), and cerebral infarction without residual deficits; Z79.02 Long term (current) use of antithrombotics/antiplatelets; Z79.82 Long term (current) use of aspirin; I10 Essential (primary) hypertension; F17.210 Nicotine dependence, cigarettes, uncomplicated
CPT/HCPCS: 43239; 45380; 88305; J2371; J2704; J7030

== ENCOUNTER → 2024-01-08 14:19 | Outpatient (BNVA) | payer MEDICARE, MEDICAID, SELFPAY | PROVIDERS: PCP Family Medicine; Visit Provider Surgery | DX: K92.2 Gastrointestinal hemorrhage, unspecified (principal) | CPT/HCPCS: 99212 ==

== ENCOUNTER 2024-02-27 13:48 | Outpatient (CLI) | payer MEDICARE, MEDICAID, SELFPAY ==
--- NOTE | 2024-02-27 13:51 | CT_ITS ---
WS: [id number] LDCT LUNG CANCER SCREENING HISTORY: NICOTINE DEPENDENCE TECHNIQUE: Axial imaging performed from the apices to 1 cm below the costophrenic angles. Coronal and sagittal reformats are submitted with axial MIP series. All CT scans at [facility] use at least one of these dose optimization techniques: automated exposure control; mA and/or kV adjustment per patient size (includes targeted exams where dose is matched to clinical indication); or iterativ e reconstruction. DLP: 65.01 mGy.cm DIvol: Mean CTDIvol: 1.10 (mGy) COMPARISON: 12/12/2022 Diagnostic quality: Satisfactory Lungs: Marked pulmonary hyperexpansion. Small pleural tag or pleural thickening in the LEFT upper lob e. Additional pleural thickening and calcification in the lateral LEFT upper lung field. Heart: Normal size heart with no pericardial effusion.. Other findings: Moderate atherosclerosis aorta. No chest wall abnormality. No adrenal mass. Mild incr ease in thoracic kyphosis. CT/CT lung screening [id number] IMPRESSION: LUNG-RADS: 2-Benign Appearance or Behavior FOLLOW UP: 12 Month: Continue annual screening with LDCT OTHER FINDINGS (S MODIFIER): None.
== END 2024-02-27 13:49 | disposition home or self-care (01) ==
LOC: RAD 13:49
PROVIDERS: PCP Family Medicine; Visit Provider Family Medicine
DX: Z12.2 Encounter for screening for malignant neoplasm of respiratory organs (principal); F17.210 Nicotine dependence, cigarettes, uncomplicated; J92.9 Pleural plaque without asbestos; I70.0 Atherosclerosis of aorta; J98.4 Other disorders of lung
CPT/HCPCS: 71271

== ENCOUNTER → 2024-03-16 14:25 | Outpatient (BNVA) | payer MEDICARE, MEDICAID, SELFPAY | PROVIDERS: PCP Family Medicine; Visit Provider Internal Medicine | DX: R07.9 Chest pain, unspecified (principal); I49.8 Other specified cardiac arrhythmias | CPT/HCPCS: 93005; 99204 ==

== ENCOUNTER → 2024-03-24 14:18 | Outpatient (BNVA) | payer MEDICARE, MEDICAID, SELFPAY | PROVIDERS: PCP Family Medicine; Visit Provider Psychiatry & Neurology Neurology | DX: G45.9 Transient cerebral ischemic attack, unspecified (principal); I63.9 Cerebral infarction, unspecified; G45.1 Carotid artery syndrome (hemispheric); R00.1 Bradycardia, unspecified; I10 Essential (primary) hypertension | CPT/HCPCS: 99212 ==

== ENCOUNTER 2024-07-08 15:41 | Outpatient (CLI) | payer MEDICARE, MEDICAID, SELFPAY ==
--- NOTE | 2024-07-08 15:50 | XR_ITS ---
WS: [id number] Exam: XR chest 2V* [id number] Date/Time of Exam: 07/08/2024 3:50 PM Reason For Exam: postviral cough, wheezing Comparison 11/19/2023. The lungs are hyperinflated. No acute infiltrates are seen. Again noted is scarring and tenting of the LEFT lung with a small stable appearing nodule. Normal cardiomediastinal silhouette. Bony structures are intact. Mild spondylosis of the T-spine. XR/XR chest 2V* [id number] IMPRESSION: 1. Pulmonary hyperinflation. Chronic changes in the mid and lower LEFT lung. 2. No acute process identified.
== END 2024-07-08 15:42 | disposition home or self-care (01) ==
LOC: RAD 15:47
PROVIDERS: PCP Family Medicine; Visit Provider Nurse Practitioner Family
DX: R05.3 Chronic cough (principal); R06.2 Wheezing; R91.1 Solitary pulmonary nodule; J98.4 Other disorders of lung; M47.894 Other spondylosis, thoracic region
CPT/HCPCS: 71046

== ENCOUNTER 2024-11-02 09:12 | Outpatient (CLI) | payer MEDICARE, MEDICAID, SELFPAY ==
--- NOTE | 2024-11-02 10:00 | USCV_ITS ---
Kenton Wright Age: 64 Gender: M : 1960 Exam Date: 11/02/2024 10:17 Ordering Phys: Akshat Townsend MD Technologist: [employer] Exam Location: [facility] [place] Indication: stenosis Risk Factors: Previous Vascular Surgery: Right Brachial BP: / Left Brachial BP: / Right Left Velocity (cm/s) Spectral Plaque Velocity (cm/s) Spectral Plaque Syst/Diast Broadening Syst/Diast Broadening 114.60/18.70 Prox CCA 55.90 / 11.80 95.00/ 20.90 Mid CCA 41.90 / 8.00 88.40/ 20.90 Distal CCA 51.60 / 8.00 44.70/ 9.70 Prox ICA 96.60 / 14.40 67.80/ 16.50 Mid ICA 101.60/ 17.80 57.90/ 14.40 Distal ICA 120.30/ 20.10 164.00 ECA 99.90 0.50 ICA/CCA 1.90 Antegrade Vertebral Antegrade 66.00/ 15.40 cm/s 35.50/ 8.20 cm/s Tri Subclavian Tri 152.3 193.9 0 0 FINDINGS Comparison: none available. Diffuse bilateral scattered calcified plaque and intimal thickening throughout the common carotid arteries and extending through the bifurcation. Antegrade vertebral arteries. CONCLUSIONS Bilateral ICA stenosis less than 50%. Diffuse calcified plaque. Dr. Nenita Torres DO (Electronically Signed) Final Date: 02 November 2024 14:01 S
== END 2024-11-02 09:13 | disposition home or self-care (01) ==
LOC: RAD 09:13
PROVIDERS: PCP Family Medicine; Visit Provider Family Medicine
DX: I65.23 Occlusion and stenosis of bilateral carotid arteries (principal)
CPT/HCPCS: 93880

== ENCOUNTER 2025-03-19 09:01 | Outpatient (CLI) | payer MEDICAID, MEDICARE, SELFPAY ==
--- NOTE | 2025-03-19 09:09 | CT_ITS ---
WS: [id number] LDCT LUNG CANCER SCREENING HISTORY: HX OF TOBACCO USE TECHNIQUE: Axial imaging performed from the apices to 1 cm below the costophrenic angles. Coronal and sagittal reformats are submitted with axial MIP series. All CT scans at [facility] use at least one of these dose optimization techniques: automated exposure control; mA and/or kV adjustment per patient size (includes targeted exams where dose is matched to clinical indication); or iterative reconstruction. DLP: 61.21 mGy.cm DIvol: Mean CTDIvol: 1.00 (mGy) COMPARISON: 02/27/2024 Diagnostic quality: Satisfactory Lungs: Focal pleural thickening with a dense calcification in the LEFT upper lobe with linear scarring and atelectasis. Increasing soft tissue along the scar formation. The prominent soft tissue measures 1.2 x 0.7 cm. There are a few additional subpleural and pleural-based nodules which are stable. Heart: Normal size heart with no pericardial effusion.. Other findings: Mild atherosclerosis aorta. Normal appearing mediastinal and hilar lymph nodes. No adrenal mass. CT/CT lung screening 44557 IMPRESSION: LUNG-RADS: 4A-Probably Suspicious FOLLOW UP: 3 Month LDCT OTHER FINDINGS (S MODIFIER): None. 3-month CT follow-up to reevaluate the increasing soft tissue nodule along the LEFT upper lobe scar.
== END 2025-03-19 09:02 | disposition home or self-care (01) ==
LOC: RAD 09:03
PROVIDERS: PCP Family Medicine; Visit Provider Family Medicine
DX: Z12.2 Encounter for screening for malignant neoplasm of respiratory organs (principal); F17.200 Nicotine dependence, unspecified, uncomplicated; J92.9 Pleural plaque without asbestos; J98.11 Atelectasis; I70.0 Atherosclerosis of aorta
CPT/HCPCS: 71271